=== PATIENT | female | born 1945 | race Caucasian/White ===

== ENCOUNTER → 2016-07-22 | Outpatient (CLI) | payer MEDICARE ==
--- NOTE | 2016-07-22 22:08 | WWHP ---
DATE OF SERVICE: 07/21/2016 CHIEF COMPLAINT: Patient is here for her routine gynecologic exam and mammogram. HPI: This is a 71-year-old G3, P3 with an LMP of 1975. She is status post ASHLEE for benign abnormal bleeding. The patient has been followed for a left adnexal cyst in 2007. The last ultrasound on 04/10/2015 showed a 4.8 cm simple left ovarian cyst. The patient was experiencing upper abdominal pain and recently had a CT scan of the abdomen and pelvis on 07/09/2016. This was done at [facility]. The CT scan showed cholelithiasis and she says she is scheduled to have her gallbladder removed on 08/04/16. She denies any pelvic pain or discomfort. PAST MEDICAL HISTORY: Type 2 diabetes, chronic hypertension, elevated cholesterol. MEDICATIONS: 1. Citalopram 20 mg p.r.n. 2. Lisinopril 20 mg daily. 3. Metformin 500 mg b.i.d. 4. Mevacor 20 mg daily. 5. Zantac 150 mg daily. 6. Calcium supplement daily. 7. Vitamin C supplement daily. 8. Magnesium supplement daily. Allergies to SULFA, LORTAB, VISTARIL and NSAID type medications. PAST SURGICAL HISTORY: ASHLEE 1975, bladder suspension in the , rectocele repair in the right knee replacement in 2007 and 2015. Bunion surgery in the past. Laparoscopic examination 2007 for left adnexal cyst but nothing was removed. Past [employer] history: Unchanged from the 2015 H&P. SOCIAL HISTORY: She denies tobacco and drug use and has 0 to 1 alcoholic drink per month. She has been since 1990 and this is her seconds marriage. She does not work outside the home. FAMILY HISTORY: Unchanged from the 2015 H&P. REVIEW OF SYSTEMS: She has lost about 13 pounds over the last year. She denies respiratory, cardiac, or GI problems. She denies maltreatment. She did fall once after her right knee replacement surgery. She had no major injuries. : She denies any significant problems with urinary leakage. PHYSICAL EXAM: Blood pressure 133/84. Height 5 feet 4 inches. Weight 147 pounds. Temperature 97.9, pulse 74. This a well-developed, well-nourished white female who is alert and oriented x3 in no acute distress. HEENT is within normal limits. NECK: Supple without mass or thyromegaly. CHEST AND LUNGS: Clear to auscultation. HEART: Regular rate and rhythm. Breasts are without mass or discharge. Axillary exam negative for adenopathy. BACK: Negative for CVA tenderness. ABDOMEN: Soft, nontender, without palpable masses. PELVIC EXAM: External genitalia reveals moderate atrophy without lesions. Vagina reveals moderate atrophy without lesions. There is no evidence of prolapse. Bimanual exam is negative for mass or tenderness. Rectovaginal exam is negative for mass or tenderness and is negative for occult blood. EXTREMITIES: Nontender. IMPRESSION: 1. A 71-year-old menopausal female, status post total abdominal hysterectomy for benign reasons. 2. Persistent left adnexal cyst, since 2007 which is asymptomatic. This measured approximately 5.4 cm with her recent CT scan. PLAN: 1. Pap smears have been discontinued. 2. Self-breast examination was discussed. 3. Mammogram will be done today. 4. CA 125 will be drawn today. We will also plan on repeating the pelvic ultrasound later this year. An order slip was given to patient for this. 5. We have discussed surgical removal of the adnexal mass. We have discussed the option of trying to have this done at the time of her cholecystectomy if we can get her ultrasound technologist sonographer to do this at that time, since she is having a laparoscopic procedure done for her gallbladder. She is declining this and would prefer to do at a later time if it needs to be done. 6. She will return in one year.
--- NOTE | 2016-07-24 08:31 | MM ---
Reason for exam: screening (asymptomatic). Last mammogram was performed 1 year and 4 months ago. History: Patient is postmenopausal. Physical Findings: A clinical breast exam by your physician is recommended on an annual basis and results should be correlated with mammographic findings. MG Screening Mammo w CAD Bilateral CC and MLO view(s) were taken. Prior study comparison: April 03, 2015, bilateral MG screening mammo w CAD. November 28, 2013, bilateral MG screening mammo w CAD. September 21, 2012, bilateral digital screening mammo w/CAD. There are scattered fibroglandular densities. No significant changes when compared with prior studies. ASSESSMENT: Negative, BI-RAD 1 RECOMMENDATION: Routine screening mammogram of both breasts in 1 year.
== END | disposition home or self-care (01) ==
LOC: WWCWWP 11:45
PROVIDERS: ATTEND Obstetrics & Gynecology
DX: Z12.31 Encounter for screening mammogram for malignant neoplasm of breast (principal)
CPT/HCPCS: 86304; G0202

== ENCOUNTER → 2017-03-12 | Outpatient (CLI) | payer MEDICARE ==
--- NOTE | 2017-03-12 12:44 | US ---
EXAMINATION TYPE: US pelvic complete DATE OF EXAM: 03/12/2017 COMPARISON: Pelvic ultrasound April 10, 2015 CLINICAL HISTORY: N83.20 PREV OVARIAN CYST LT. check growth of lt ovarian cyst that patient has had f or 10yrs TECHNIQUE: TA, no TV Date of LMP: 40years ago EXAM MEASUREMENTS: Uterus: N/A Endometrial Stripe: N/A Right Ovary: N/A Left Ovary: 5.5 x 4.4 x 6.2cm 1. Uterus: surgically absent 2. Endometrium: surgically absent 3. Right Ovary: not seen due to bowel gas and atrophy 4. Left Ovary: 6.2 cm ovarian cyst seen 5. Bilateral Adnexa: wnl 6. Posterior cul-de-sac: wnl IMPRESSION: There is stable simple appearing 6.2 cm cyst in left ovary not significantly changed in s ize or appearance from prior study. No suspicious nodularity or thickened septation is seen. This is abnormal finding for postmenopausal female worrisome for cystic neoplasm though almost certainly is b enign given appearance and stable findings.
== END | disposition home or self-care (01) ==
LOC: RADUSWWP 12:07
PROVIDERS: ATTEND Obstetrics & Gynecology
DX: N83.202 Unspecified ovarian cyst, left side (principal); Z78.0 Asymptomatic menopausal state
CPT/HCPCS: 76856

== ENCOUNTER → 2017-03-23 | Outpatient (CLI) | payer MEDICARE ==
--- NOTE | 2017-03-23 08:50 | P.PN ---
Progress Note - Text Chief complaint: the patient is here because of left breast pain which began at the end of February. HPI: is is a 71 year old with an LMP of 1977. The patient states she developed sudden left breast pain at the end of February. She states that it was at a 9 out of 10 on the pain scale. Currently it is one out of 10. She does not believe there was any trauma to the breast. She denies redness or bruising. She also denies nipple discharge. She noticed it 1st when she was camping. She does not believe she did any she was told that she did have a slight rib fracture about 6 months ago. She states she does not consume very much caffeine. Review of systems: she denies fever. The rest of the review of systems as in the HPI. Physical exam: blood pressure 146/85, height 5'4", weight 155 pounds, intention 97.3, pulse 71. As a well-developed well-nourished way female was alert and oriented times 3 in no acute distress. BREAST EXAM: breasts appear within normal limits. There is no unusual puckering or dimpling. The nipples are not inverted. There is no nipple discharge. There are no palpable breast masses, however, there is tenderness at the 8 o'clock position of the left breast approximately 3 cm from the areola. The tenderness is mild. She states this is the area of her breast pain. Axillary exam is negative for adenopathy. Additional studies: bilateral screening mammogram was done on 07/22/2016. This was negative. Impression: 1. 71-year-old female with a three-week history of left breast pain which is improving. There is mild tenderness at the 8 o'clock position of the left breast with no palpable mass. Differential diagnosis will include left breast cyst, other fibrocystic pain, musculoskeletal pain, and less likely breast malignancy. Plan: 1. The left breast was marked the area of tenderness. 2. If the breast ultrasound is not suspicious, such as a benign appearing cyst or no abnormality seen, will plan a conservative management. I recommended she limit caffeine and chocolate intake. 3. She was also instructed to call if she is having worsening of symptoms. 4. She can use [id number] ibuprofen as directed as needed. 5. She will return in July 2017 for her annual examination and PRN. Total time spent with patient 15 minutes.
--- NOTE | 2017-03-23 09:57 | USB ---
Reason for exam: clinical finding. History: Patient is postmenopausal. US Breast LT Left breast ultrasound includes all four quadrants, the retroareolar region and axilla. Finding demonstrates no cystic or solid lesion seen. Area of pain negative. These results were verbally communicated with the patient and result sheet given to the patient on 03/23/17. ASSESSMENT: Benign, BI-RAD 2 RECOMMENDATION: Return to routine screening mammogram schedule for both breasts. Manage patient on a clinical basis.
== END ==
LOC: WWCWWP 08:01
PROVIDERS: ATTEND Obstetrics & Gynecology
DX: N64.4 Mastodynia (principal)

== ENCOUNTER 2018-10-21 11:38 | Inpatient (IN) | payer MEDICARE ==
[2018-10-21] MEDS ORDERED: ASPIRIN 81 MG PO STA (12:09)
[2018-10-21] MEDS ORDERED: NITROGLYCERIN OINT 1 INCH/GM PACKET TOPICAL STA (12:09)
[2018-10-21] MEDS ORDERED: HEPARIN SODIUM,PORCINE 10,000 UNIT/ML 1 ML VIAL IV ONE (12:10)
--- NOTE | 2018-10-21 12:12 | ED ---
General Adult HPI - General Chief complaint: Extremity Problem,Nontraumatic Stated complaint: lt leg pain/swelling Time Seen by Provider: 10/21/18 11:40 Source: patient, RN notes reviewed Mode of arrival: ambulatory Limitations: no limitations - History of Present Illness Initial comments: This is a 73-year-old female presents emergency Department complaining of left leg swelling and then some chest pain on her way to the hospital. Patient states the pain was in the center of her chest hurts take a deep breath and the pain radiated to her neck. She also is a little for breath when this occurred. Patient states the worst the pain lasted about 15 minutes and it is still there a little bit but not as bad. Patient states the swelling in the legs below the knee and goes all the down to her foot. Patient states the calf is very tender to touch as well. Patient states she had clots in 30 years ago which does know why or what caused the clot then. Patient denies any recent fever chills or cough. Patient denies any recent trauma. Patient denies lightheadedness dizziness or near syncopal episode. Patient denies any abdominal pain. Patient denies being on any blood thinners. Patient does have a history of diabetes hypertension high cholesterol. - Related Data Home Medications Medication Instructions Recorded Confirmed Ascorbic Acid [Vitamin C] 500 mg PO DAILY 10/21/18 10/21/18 Calcium Carb-Vit D 500Mg-200Un 1 tab PO DAILY 10/21/18 10/21/18 [Oscal 500+D] Citalopram Hydrobromide 20 mg PO DAILY 10/21/18 10/21/18 [Citalopram HBr] Lisinopril 20 mg PO DAILY 10/21/18 10/21/18 Lovastatin [Mevacor] 20 mg PO HS 10/21/18 10/21/18 Magnesium 200 mg PO DAILY 10/21/18 10/21/18 Multivitamins, Thera [Multivitamin 1 tab PO DAILY 10/21/18 10/21/18 (formulary)] Pioglitazone HCl [Actos] 15 mg PO DAILY 10/21/18 10/21/18 Ranitidine HCl [Zantac] 300 mg PO HS 10/21/18 10/21/18 metFORMIN HCL 1,000 mg PO BID 10/21/18 10/21/18 Allergies Allergy/AdvReac Type Severity Reaction Status Date / Time acetaminophen [From Lortab] Allergy Rash/Hives Verified 10/21/18 12:02 hydrocodone [From Lortab] Allergy Rash/Hives Verified 10/21/18 12:02 hydroxyzine [From Vistaril] Allergy Rash/Hives Verified 10/21/18 12:02 NSAIDS (Non-Steroidal Allergy Rash/Hives Verified 10/21/18 12:02 Anti-Inflamma Sulfa (Sulfonamide Allergy Rash/Hives Verified 10/21/18 12:02 Antibiotics) Review of Systems ROS Statement: Those systems with pertinent positive or pertinent negative responses have been documented in the HPI. ROS Other: All systems not noted in ROS Statement are negative. Past Medical History Past Medical History: Diabetes Mellitus, Hypertension Past Surgical History: Hysterectomy, Orthopedic Surgery Additional Past Surgical History / Comment(s): Bladder Past Psychological History: No Psychological Hx Reported Smoking Status: Never smoker Past Alcohol Use History: Occasional Past Drug Use History: None Reported General Exam - General Exam Comments Initial Comments: GENERAL: Patient is well-developed and well-nourished. Patient is nontoxic and well- hydrated and is in mild distress. ENT: Neck is soft and supple. No significant lymphadenopathy is noted. Oropharynx is clear. Moist mucous membranes. Neck has full range of motion without eliciting any pain. EYES: The sclera were anicteric and conjunctiva were pink and moist. Extraocular movements were intact and pupils were equal round and reactive to light. Eyelids were unremarkable. PULMONARY: Unlabored respirations. Good breath sounds bilaterally. No audible rales rhonchi or wheezing was noted. CARDIOVASCULAR: There is a regular rate and rhythm without any murmurs gallops or rubs. ABDOMEN: Soft and nontender with normal bowel sounds. No palpable organomegaly was noted. There is no palpable pulsatile mass. SKIN: Skin is clear with no lesions or rashes and otherwise unremarkable. NEUROLOGIC: Patient is alert and oriented x3. Cranial nerves II through XII are grossly intact. Motor and sensory are also intact. Normal speech, volume and content. Symmetrical smile. MUSCULOSKELETAL: Normal extremities with adequate strength and full range of motion. Left leg below the knee is swollen and it Is very tender to palpation LYMPHATICS: No significant lymphadenopathy is noted PSYCHIATRIC: Normal psychiatric evaluation. Limitations: no limitations Course Vital Signs 10/21/18 10/21/18 10/21/18 11:44 12:19 14:10 Temperature 98.1 F Pulse Rate 79 77 71 Respiratory 20 16 18 Rate Blood Pressure 173/93 187/90 159/89 O2 Sat by Pulse 97 98 98 Oximetry 10/21/18 15:23 Temperature Pulse Rate 77 Respiratory 18 Rate Blood Pressure 142/80 O2 Sat by Pulse 96 Oximetry Medical Decision Making - Medical Decision Making EKG shows normal sinus rhythm at 67 bpm TX interval 126 QRS is 82 QT interval 446 QTC is 471. I started heparin high-dose on the patient immediately because she had a swollen leg and was having chest pain which was worse with inspiration. Also the patient a past history of DVT. Patient's d-dimer came back elevated so I ultrasounded the leg and CAT scan the patient's chest. Patient did not have a DVT the patient did not have a PE. Patient did have chest pain radiated to her neck some go to bring the patient in for unstable angina. I spoke with Dr. Owens he agreed to admit the patient admitted the patient I continued heparin and aspirin Nitropaste on the floor. I consult cardiology I wrote admitting orders. - Lab Data Result diagrams: 10/21/18 12:06 10/21/18 12:06 Lab Results 10/21/18 10/21/18 10/21/18 Range/Units 12:06 12:06 12:06 WBC 6.9 (3.8-10.6) k/uL RBC 4.16 (3.80-5.40) m/uL Hgb 12.5 (11.4-16.0) gm/dL Hct 38.4 (34.0-46.0) % MCV 92.5 (80.0-100.0) fL MCH 30.2 (25.0-35.0) pg MCHC 32.6 (31.0-37.0) g/dL RDW 13.0 (11.5-15.5) % Plt Count 331 (150-450) k/uL Neutrophils % 45 % Lymphocytes % 36 % Monocytes % 5 % Eosinophils % 9 % Basophils % 1 % Neutrophils # 3.1 (1.3-7.7) k/uL Lymphocytes # 2.5 (1.0-4.8) k/uL Monocytes # 0.4 (0-1.0) k/uL Eosinophils # 0.7 (0-0.7) k/uL Basophils # 0.1 (0-0.2) k/uL PT 9.9 (9.0-12.0) sec INR 0.9 (<1.2) APTT 23.8 (22.0-30.0) sec D-Dimer 1.46 H (<0.60) mg/L FEU Sodium 136 L (137-145) mmol/L Potassium 4.3 (3.5-5.1) mmol/L Chloride 102 (98-107) mmol/L Carbon Dioxide 30 (22-30) mmol/L Anion Gap 4 mmol/L BUN 12 (7-17) mg/dL Creatinine 0.55 (0.52-1.04) mg/dL Est GFR (CKD-EPI)AfAm >90 (>60 ml/min/1.73 sqM) Est GFR (CKD-EPI)NonAf >90 (>60 ml/min/1.73 sqM) Glucose 98 (74-99) mg/dL Calcium 9.5 (8.4-10.2) mg/dL Magnesium 1.8 (1.6-2.3) mg/dL Total Bilirubin 0.4 (0.2-1.3) mg/dL AST 21 (14-36) U/L ALT 29 (9-52) U/L Alkaline Phosphatase 87 (38-126) U/L Troponin I (0.000-0.034) ng/mL Total Protein 6.2 L (6.3-8.2) g/dL Albumin 3.9 (3.5-5.0) g/dL 10/21/18 Range/Units 12:06 WBC (3.8-10.6) k/uL RBC (3.80-5.40) m/uL Hgb (11.4-16.0) gm/dL Hct (34.0-46.0) % MCV (80.0-100.0) fL MCH (25.0-35.0) pg MCHC (31.0-37.0) g/dL RDW (11.5-15.5) % Plt Count (150-450) k/uL Neutrophils % % Lymphocytes % % Monocytes % % Eosinophils % % Basophils % % Neutrophils # (1.3-7.7) k/uL Lymphocytes # (1.0-4.8) k/uL Monocytes # (0-1.0) k/uL Eosinophils # (0-0.7) k/uL Basophils # (0-0.2) k/uL PT (9.0-12.0) sec INR (<1.2) APTT (22.0-30.0) sec D-Dimer (<0.60) mg/L FEU Sodium (137-145) mmol/L Potassium (3.5-5.1) mmol/L Chloride (98-107) mmol/L Carbon Dioxide (22-30) mmol/L Anion Gap mmol/L BUN (7-17) mg/dL Creatinine (0.52-1.04) mg/dL Est GFR (CKD-EPI)AfAm (>60 ml/min/1.73 sqM) Est GFR (CKD-EPI)NonAf (>60 ml/min/1.73 sqM) Glucose (74-99) mg/dL Calcium (8.4-10.2) mg/dL Magnesium (1.6-2.3) mg/dL Total Bilirubin (0.2-1.3) mg/dL AST (14-36) U/L ALT (9-52) U/L Alkaline Phosphatase (38-126) U/L Troponin I <0.012 (0.000-0.034) ng/mL Total Protein (6.3-8.2) g/dL Albumin (3.5-5.0) g/dL Critical Care Time Critical Care Time: Yes Total Critical Care Time: 35 Disposition Clinical Impression: Unstable angina Disposition: ADMITTED IP TO THIS HOSP Referrals: Sigifredo Hernandez MD [Primary Care Provider] - 1-2 days Time of Disposition: 16:29
[2018-10-21] MEDS ORDERED: HEPARIN SOD,PORK IN 0.45% NACL 25,000 UNIT in 0.45% NACL 1 250ML.BAG IV SCH ×2 (12:15→15:30)
[2018-10-21 12:33] LABS: Basophils # (A) 0.1 k/uL (0-0.2); Basophils % (A) 1 %; Eosinophils # (A) 0.7 k/uL (0-0.7); Eosinophils % (A) 9 %; HCT 38.4 % (34.0-46.0); HGB 12.5 gm/dL (11.4-16.0); Lymphocytes # (A) 2.5 k/uL (1.0-4.8); Lymphocytes % (A) 36 %; MCH 30.2 pg (25.0-35.0); MCHC 32.6 g/dL (31.0-37.0); MCV 92.5 fL (80.0-100.0); Mean Platelet Volume 7.1; Monocytes # (A) 0.4 k/uL (0-1.0); Monocytes % (A) 5 %; Neutrophils # (A) 3.1 k/uL (1.3-7.7); Neutrophils % (A) 45 %; Platelet Count 331 k/uL (150-450); RBC 4.16 m/uL (3.80-5.40); WBC 6.9 k/uL (3.8-10.6)
[2018-10-21 12:45] LABS: ALT 29 U/L (9-52); AST 21 U/L (14-36); Albumin 3.9 g/dL (3.5-5.0); Alkaline Phosphatase 87 U/L (38-126); Anion Gap 4 mmol/L; Blood Urea Nitrogen 12 mg/dL (7-17); Calcium 9.5 mg/dL (8.4-10.2); Carbon Dioxide 30 mmol/L (22-30); Chloride 102 mmol/L (98-107); Glucose 98 mg/dL (74-99); Magnesium 1.8 mg/dL (1.6-2.3); Potassium 4.3 mmol/L (3.5-5.1); Sodium 136 mmol/L (137-145); Total Bilirubin 0.4 mg/dL (0.2-1.3); Total Protein 6.2 g/dL (6.3-8.2)
[2018-10-21 12:54] LABS: INR 0.9 (<1.2); Partial Thromboplastin Time 23.8 sec (22.0-30.0); Prothrombin Time 9.9 sec (9.0-12.0)
--- NOTE | 2018-10-21 12:56 | XR ---
EXAMINATION TYPE: XR chest 2V DATE OF EXAM: 10/21/2018 COMPARISON: NONE HISTORY: Chest pain TECHNIQUE: Frontal and lateral views of the chest are obtained. FINDINGS: There is no focal air space opacity, pleural effusion, or pneumothorax seen. The cardiac silhouette size is within normal limits. The osseous structures are intact. Mild degenerative strickland es of the spine and bilateral acromioclavicular joints are noted. IMPRESSION: No acute cardiopulmonary process.
[2018-10-21 13:08] LABS: D-Dimer 1.46 mg/L FEU (<0.60)
--- NOTE | 2018-10-21 14:03 | CT ---
CT CHEST FOR PULMONARY EMBOLISM. EXAMINATION TYPE: CT chest angio for PE DATE OF EXAM: 10/21/2018 INDICATION: Lt leg pain, chest pain CT DLP: 244.5 mGycm, Automated exposure control for dose reduction was used. CONTRAST: Patient injected with 73 mL of Isovue 370. COMPARISON: None TECHNIQUE: CT of the chest is performed on a spiral scan at 2 mm thick sections. Study is performed with intravenous contrast timed for evaluation for pulmonary embolism. This will limit additional po rtions of the evaluation. 3-D MIP images reconstructed by the technologist are reviewed on the compu ter in the coronal and sagittal planes. FINDINGS: No persistent filling defects are evident to suggest an acute pulmonary embolism. Scattered lymphadenopathy is within the mediastinum. No mediastinal or hilar adenopathy enlarged by C T criteria is evident. The ascending aorta diameter at the level of the main pulmonary artery is 3.3 cm. The main pulmonary artery diameter at the bifurcation is 2.7 cm. Coronary artery calcification is likely present. Lung windows are clear. Limited CT section through the upper abdomen are unremarkable. IMPRESSIONS: 1. No acute pulmonary embolism.
--- NOTE | 2018-10-21 15:09 | US ---
EXAMINATION TYPE: US venous doppler duplex LE LT DATE OF EXAM: 10/21/2018 2:49 PM COMPARISON: NONE CLINICAL HISTORY: Pain. SIDE PERFORMED: Left TECHNIQUE: The lower extremity deep venous system is examined utilizing real time linear array sonog cristin with graded compression, doppler sonography and color-flow sonography. VESSELS IMAGED: External Iliac Vein (EIV) Common Femoral Vein Deep Femoral Vein Greater Saphenous Vein * Femoral Vein Popliteal Vein Small Saphenous Vein * Proximal Calf Veins (* superficial vessels) Grayscale, color doppler, spectral doppler imaging performed of the deep veins of the left lower extr emity. There is normal flow, compressibility, vascular waveforms. Left Leg: Negative for DVT Patient states that she regularly has fluid removed from left knee and is due to have that done. Ther e is a fluid collection left medial knee. IMPRESSION: 1. No sonographic evidence of deep venous arthrosis within the left lower extremity. 2. Popliteal fossa fluid collection may represent a Montes's cyst.
[2018-10-21] MEDS ORDERED: NITROGLYCERIN SL TABS 0.4 MG TAB SUBLINGUAL PRN (16:29)
[2018-10-21 17:24] LABS: Glucose,Whole Blood 136 mg/dL (75-99)
[2018-10-21 17:43] VITALS: BMI 25.7
[2018-10-21 20:42] LABS: Glucose,Whole Blood 130 mg/dL (75-99)
[2018-10-21] MEDS: INSULIN ASPART (NovoLOG) 100 UNIT/ML VIAL SQ SCH (20:43)
[2018-10-21] MEDS ORDERED: ACETAMINOPHEN TAB 500 MG TAB PO PRN (20:54)
[2018-10-21] MEDS ORDERED: FAMOTIDINE 20 MG TAB PO SCH (21:00)
[2018-10-21] MEDS ORDERED: ATORVASTATIN 10 MG TAB PO SCH (21:00)
[2018-10-21] MEDS ORDERED: traMADol 50 MG TAB PO PRN (23:35)
[2018-10-22 03:30] LABS: Cholesterol 122 mg/dL (<200); HDL Cholesterol 53 mg/dL (40-60); LDL Cholesterol,Calculated 30 mg/dL (0-99); Triglycerides 193 mg/dL (<150)
[2018-10-22 04:35] VITALS: TEMP 97.7
[2018-10-22 06:46] LABS: Glucose,Whole Blood 114 mg/dL (75-99)
[2018-10-22 08:05] VITALS: RESP 16
[2018-10-22] MEDS: INSULIN ASPART (NovoLOG) 100 UNIT/ML VIAL SQ SCH ×2 (08:23→11:55)
--- NOTE | 2018-10-22 08:52 | CONS ---
CONSULTATION CHIEF COMPLAINT: Chest pain. Mirian is a 73-year-old lady with history of [id number] diabetes and hypertension and dyslipidemia who presented to the hospital complaining of left leg pain and subsequently complained of chest pain. Her leg discomfort had come on over 24 hours. It hurts to move and to touch. She had a venous duplex study that is negative for DVT and her pulses are normal. The only unusual thing she did was to take a long walk with her . She has a pain in the knee on that side. Along the way, she had an episode of chest pain that was a precordial chest discomfort, mild intensity and associated with diaphoresis and unrelated to exertion. radiation to neck, arm or back. The patient had an EKG that revealed normal sinus rhythm and is within normal limits. Had a CT scan of the chest that was negative for pulmonary embolism. The patient has coronary calcification. 3 sets of cardiac enzymes are negative. PAST MEDICAL HISTORY: Significant for diabetes, dyslipidemia, hypertension. MEDICATIONS: Include Actos, Mevacor, lisinopril, vitamin C, metformin, citalopram. ALLERGIC: LORTAB, RESTORIL, NSAIDS AND SULFA. FAMILY HISTORY: Negative for premature coronary artery disease. SOCIAL HISTORY: Negative for current smoking, EtOH abuse, or drug abuse. REVIEW OF SYSTEMS: HEENT is significant for which is flu-like symptoms. Cardiac as described above. Respiratory negative. GI negative. Genitourinary negative. Allergy/Immunology: None. Skin negative. Musculoskeletal significant for arthritis. Psychosocial negative. Endocrine negative. Derm: Negative. Constitutional significant for febrile illness. Rest of the system review is not relevant. EXAM: Comfortable at rest. Vital signs are stable. There is no jugular venous distention. Carotid upstroke is normal. There is no bruit. Chest exam reveals good air entry bilaterally. Heart exam reveals first and second heart sounds. No gallop. No murmur. No rub. Abdomen is soft, nontender. Exam of extremities did not reveal any edema. Peripheral pulses are felt. Hemoglobin is 12.5, platelet count is 331, potassium is 4.3, creatinine is 0.5. Three sets of troponins are negative. LDL is 30. ASSESSMENT: 1. Precordial chest pain sharp atypical. 2. Left leg discomfort, etiology is unclear. 3. Hypertension. 4. Dyslipidemia. 5. Non-insulin diabetes. PLAN: Myocardial infarction is ruled out. I will stop the IV heparin. Venous duplex is negative. We can ambulate her and see how she does. We will consider an outpatient stress test on her. I will obtain a 2D echo on this admission. ERINN / KAREEN: [id number] /
[2018-10-22] MEDS ORDERED: ASPIRIN 325 MG TAB PO SCH (09:00)
[2018-10-22] MEDS ORDERED: ASCORBIC ACID 500 MG TAB PO SCH (09:00)
[2018-10-22] MEDS ORDERED: CITALOPRAM HYDROBROMIDE 20 MG TAB PO SCH (09:00)
[2018-10-22] MEDS ORDERED: MAGNESIUM OXIDE 400 MG TAB PO SCH (09:00)
[2018-10-22] MEDS ORDERED: CALCIUM CARB-VIT D 500MG-200UN 1 EACH TAB PO SCH (09:00)
[2018-10-22] MEDS ORDERED: LISINOPRIL 20 MG TAB PO SCH (09:00)
[2018-10-22] MEDS ORDERED: PIOGLITAZONE 15 MG TAB PO SCH (09:00)
--- NOTE | 2018-10-22 09:13 | XR ---
EXAMINATION TYPE: XR knee complete LT DATE OF EXAM: 10/22/2018 COMPARISON: NONE HISTORY: 73-year-old female with knee swelling TECHNIQUE: 3 views FINDINGS: Underlying joint effusion is demonstrated. Anterior soft tissue swelling. Left total knee a rthroplasty appears well seated. No periprosthetic lucency or fracture is seen. Osteopenia. Limited g rossly anatomic. IMPRESSION: Underlying knee joint effusion. Some anterior soft tissue swelling. Clinical correlation recommended. No evident hardware loosening or periprosthetic fracture is seen.
[2018-10-22 11:53] LABS: Glucose,Whole Blood 128 mg/dL (75-99)
[2018-10-22] MEDS ORDERED: MULTIVITAMINS, THERA 1 EACH TAB PO SCH (12:00)
[2018-10-22 12:23] VITALS: BP 116/69; PULSE 77
--- NOTE | 2018-10-22 12:53 | P.HPIM ---
History of Present Illness H&P Date: 10/22/18 Chief Complaint: Chest pain, lower leg pain/swelling This is a 73-year-old pleasant female who presented to the emergency department complaining of left leg swelling and pain to the left calf. While traveling to the hospital she developed midsternal chest pain radiating to left shoulder and neck. Patient states that the pain hurts to take a deep breath and she felt shortness of breath during the episode that lasted approximately 15 minutes. Patient is also complaining of swelling to the legs below the knee and especially the left leg. At this time patient is resting comfortably in bed. Patient has no longer any complaints of chest pain the pain in her left leg has decreased. There is some noticeable swelling to the left knee which is a common occurrence for the patient. Patient states that she has the knee drained approximately every 3-4 months. Patient states that yesterday she did take a walk with her prior to the increase in left leg pain. Patient does have history of blood clots apparently 30 years ago. She has not on any antico agulant medications at this time. She past medical history includes diabetes mellitus, hyperlipidemia, hypertension. Patient sees Dr. Ashtyn Santos in the outpatient setting. EKG shows normal sinus rhythm. Troponins 3 were negative. Patient will be scheduled for an echocardiogram today if the echocardiogram is within normal limits patient will be discharged home today. Review of Systems Review Of Systems: Constitutional: No fever, no chills, no night sweats. No weight change. No weakness, fatigue or lethargy. No daytime sleepiness. EENT: No headache. No blurred vision or double vision, no loss of vision. No loss of Hearing, no ringing in the ears, no dizziness. No nasal drainage or congestion. No epistaxis. No sore throat. Lungs: No shortness of breath, cough, no sputum production. No wheezing. Cardiovascular: No chest pain, reports left knee swelling. No palpitations. No paroxysmal nocturnal dyspnea. No orthopnea. No lightheadedness or dizziness. No syncopal episodes. Abdominal: no abdominal discomfort. No nausea, vomiting. no diarrhea. No constipation. No bloody or tarry stools. improved loss of appetite. Genitourinary: No dysuria, increased frequency, urgency. No urinary retention. Musculoskeletal: Reports left knee and lower left leg pain, reports left knee swelling, No myalgias. No muscle weakness, no gait dysfunction, no frequent falls. No back pain. No neck pain. Integumentary: No wounds, no lesions. No rash or pruritus. No unusual bruising. No change in hair or nails. Neurologic: No aphasia. No facial droop. No change in mentation. No head injury. No headache. No paralysis. No paresthesia. Psychiatric: No depression. No anxiety. No mood swings. Endocrine: No abnormal blood sugars. No weight change. No excessive sweating or thirst. Past Medical History Past Medical History: Diabetes Mellitus, Hyperlipidemia, Hypertension History of Any Multi-Drug Resistant Organisms: None Reported Past Surgical History: Hysterectomy, Orthopedic Surgery Additional Past Surgical History / Comment(s): Bladder Past Anesthesia/Blood Transfusion Reactions: No Reported Reaction Past Psychological History: No Psychological Hx Reported Smoking Status: Never smoker Past Alcohol Use History: Occasional Past Drug Use History: None Reported Additional History: Family history: Father at age 70 history of CAD, mother at age 69 history of CAD. Brothers 3: One brother from liver issues, one brother has a permanent pacemaker, one brother has history of hypertension. 2 daughters: One healthy, one history of diabetes, one son: History of diabetes - Past Family History Father Additional Family Medical History / Comment(s): athersclerosis Mother Additional Family Medical History / Comment(s): heart related issues Medications and Allergies Home Medications Medication Instructions Recorded Confirmed Type Ascorbic Acid [Vitamin C] 500 mg PO DAILY 10/21/18 10/21/18 History Calcium Carb-Vit D 500Mg-200Un 1 tab PO DAILY 10/21/18 10/21/18 History [Oscal 500+D] Citalopram Hydrobromide 20 mg PO DAILY 10/21/18 10/21/18 History [Citalopram HBr] Lisinopril 20 mg PO DAILY 10/21/18 10/21/18 History Lovastatin [Mevacor] 20 mg PO HS 10/21/18 10/21/18 History Magnesium 200 mg PO DAILY 10/21/18 10/21/18 History Multivitamins, Thera [Multivitamin 1 tab PO DAILY 10/21/18 10/21/18 History (formulary)] Pioglitazone HCl [Actos] 15 mg PO DAILY 10/21/18 10/21/18 History Ranitidine HCl [Zantac] 300 mg PO HS 10/21/18 10/21/18 History metFORMIN HCL 1,000 mg PO BID 10/21/18 10/21/18 History Allergies Allergy/AdvReac Type Severity Reaction Status Date / Time acetaminophen [From Lortab] Allergy Rash/Hives Verified 10/21/18 12:02 hydrocodone [From Lortab] Allergy Rash/Hives Verified 10/21/18 12:02 hydroxyzine [From Vistaril] Allergy Rash/Hives Verified 10/21/18 12:02 NSAIDS (Non-Steroidal Allergy Rash/Hives Verified 10/21/18 12:02 Anti-Inflamma Sulfa (Sulfonamide Allergy Rash/Hives Verified 10/21/18 12:02 Antibiotics) Physical Exam Vitals: Vital Signs Temp Pulse Pulse Resp BP BP Pulse Ox 10/22/18 12:00 97.7 F 77 16 116/69 96 10/22/18 11:53 79 16 10/22/18 08:00 97.7 F 79 16 155/84 95 10/22/18 04:00 97.7 F 70 18 135/71 96 10/22/18 03:47 18 10/22/18 00:00 18 10/21/18 23:30 97.6 F 70 18 126/71 96 10/21/18 20:00 18 10/21/18 19:33 97.4 F L 81 18 162/79 96 10/21/18 17:15 98 F 82 18 147/73 95 10/21/18 17:06 97.9 F 81 18 137/80 96 10/21/18 16:29 76 18 130/70 96 10/21/18 15:23 77 18 142/80 96 10/21/18 14:10 71 18 159/89 98 Intake and Output 10/21/18 10/22/18 10/22/18 22:59 06:59 14:59 Intake Total 236 Balance 236 Intake: Oral 236 Other: Voiding Method Toilet # Voids 2 1 General Appearance: Alert, cooperative, no distress, appears stated age. Neck HEENT: Supple, no lymphadenopathy, no thyroid enlargement, no carotid bruits. Lungs: Clear to auscultation without crackles or wheezes no rhonchi, no deformity. Chest Wall: Chest wall normal expansion with deep inspiration no tenderness and no deformity was found on exam, no costochondral pain or discomfort. Heart: Regular rate and rhythm, S1, S2 normal, no murmur, rub or gallop. Back: Symmetric, no curvature, ROM normal, no CVA tenderness. Abdomen: Soft, non-tender, no rebound or rigidity, no hepatosplenomegaly. Extremities: Extremities normal, atraumatic, edema to left knee, no redness or warmth to bilateral lower extremities, negative homans sign, no cyanosis. Pulses: 2+ and symmetric. Skin: Skin color, texture, tugor normal, no rashes or lesions. Neurologic: Alert oriented x3 cranial nerves II through XII intact, no motor deficit, no abnormal balance or gait Results CBC & Chem 7: 10/21/18 12:06 10/21/18 12:06 Labs: Abnormal Lab Results - Last 24 Hours (Table) 10/21/18 10/21/18 10/21/18 Range/Units 12:06 12:06 12:06 APTT (22.0-30.0) sec D-Dimer 1.46 H (<0.60) mg/L FEU Sodium 136 L (137-145) mmol/L POC Glucose (mg/dL) (75-99) mg/dL Total Protein 6.2 L (6.3-8.2) g/dL Triglycerides 193 H (<150) mg/dL 10/21/18 10/21/18 10/21/18 Range/Units 17:22 20:41 21:05 APTT 51.7 H (22.0-30.0) sec D-Dimer (<0.60) mg/L FEU Sodium (137-145) mmol/L POC Glucose (mg/dL) 136 H 130 H (75-99) mg/dL Total Protein (6.3-8.2) g/dL Triglycerides (<150) mg/dL 10/22/18 10/22/18 10/22/18 Range/Units 06:44 07:32 11:52 APTT 43.3 H (22.0-30.0) sec D-Dimer (<0.60) mg/L FEU Sodium (137-145) mmol/L POC Glucose (mg/dL) 114 H 128 H (75-99) mg/dL Total Protein (6.3-8.2) g/dL Triglycerides (<150) mg/dL Thrombosis Risk Factor Assmnt - Choose All That Apply Any of the Below Risk Factors Present?: Yes Each Factor Represents 1 point: Obesity (BMI >25), Swollen legs (current) Other Risk Factors: Yes Each Risk Factor Represents 3 Points: Age 75 years or older, History of DVT/PE Thrombosis Risk Factor Assessment Total Risk Factor Score: 8 Thrombosis Risk Factor Assessment Level: High Risk Assessment and Plan Plan: 1. Atypical chest pain: Cardiology consult appreciated-cardiac of knowledge he to see patient will schedule a outpatient stress test in 3 weeks, 2-D echo ordered, troponins negative 3, heparin drip per protocol. Continue aspirin Aspirin, Lipitor. If 2-D echo is within normal limits patient will be discharged home today. 2. left leg pain secondary to effusion rule out cellulitis: Venous duplex study was negative for DVT. Left knee x-ray showed underlying knee joint effusion, anterior soft tissue swelling. No evidence of hardware loosening or prosthesis fracture is seen. Tramadol 50 mg by mouth 3 times a day as needed 3. Diabetes mellitus: Continue Actos 50 mg by mouth daily 4. Hypertension: Continue lisinopril 20 mg daily 5. GERD: Pepcid 40 mg by mouth at bedtime 6. Depression: Celexa 20 mg daily 7. Hyperlipidemia: Atorvastatin 10 mg by mouth at bedtime 8. DVT prophylaxis: Heparin drip 9. GI prophylaxis: As noted above Discharge plan: Home with self-care Impression and plan of care have been directed as dictated by the signing physician. Haley Sheehan nurse practitioner acting as scribe for signing physician.
--- NOTE | 2018-10-22 12:56 | P.DS ---
Providers Date of admission: 10/21/18 16:33 Attending physician: Alissa Owens Consults: 10/21/18 16:31 Consult Physician Urgent Consulting Provider: [facility] Consult Reason/Comments: Unstable angina Do you want consulting provider notified?: Yes Primary care physician: Sigifredo Hernandez [facility] Course: This is a 73-year-old pleasant female who presented to the emergency department complaining of left leg swelling and pain to the left calf. While traveling to the hospital she developed midsternal chest pain radiating to left shoulder and neck. Patient states that the pain hurts to take a deep breath and she felt shortness of breath during the episode that lasted approximately 15 minutes. Patient is also complaining of swelling to the legs below the knee and especially the left leg. At this time patient is resting comfortably in bed. Patient has no longer any complaints of chest pain the pain in her left leg has decreased. There is some noticeable swelling to the left knee which is a common occurrence for the patient. Patient states that she has the knee drained approximately every 3-4 months. Patient states that yesterday she did take a walk with her prior to the increase in left leg pain. Patient does have history of blood clots apparently 30 years ago. She has not on any anticoagulant medications at this time. She past medical history includes diabetes mellitus, hyperlipidemia, hypertension. Patient sees Dr. Ashtyn Santos in the outpatient setting. EKG shows normal sinus rhythm. Troponins 3 were negative. Patient will be scheduled for an echocardiogram today if the echocardiogram is within normal limits patient will be discharged home today. Bilateral venous duplexes ordered and was negative for DVT. left knee x-ray shows knee joint effusion, anterior soft tissue swelling. No evidence of hardware loosening or prosthesis fracture seen. Plan: 1. Atypical chest pain: 2. left leg pain secondary to effusion rule out cellulitis: 3. Diabetes mellitus: 4. Hypertension: 5. GERD: 6. Depression: 7. Hyperlipidemia: Disposition: Home with self-care Impression and plan of care have been directed as dictated by the signing physician. Haley Sheehan nurse practitioner acting as scribe for signing physician. Plan - Discharge Summary New Discharge Prescriptions: Continue Multivitamins, Thera [Multivitamin (formulary)] 1 tab PO DAILY Magnesium 200 mg PO DAILY Calcium Carb-Vit D 500Mg-200Un [Oscal 500+D] 1 tab PO DAILY Ascorbic Acid [Vitamin C] 500 mg PO DAILY metFORMIN HCL 1,000 mg PO BID Ranitidine HCl [Zantac] 300 mg PO HS Lovastatin [Mevacor] 20 mg PO HS Lisinopril 20 mg PO DAILY Citalopram Hydrobromide [Citalopram HBr] 20 mg PO DAILY Pioglitazone HCl [Actos] 15 mg PO DAILY Discharge Medication List Ascorbic Acid [Vitamin C] 500 mg PO DAILY 10/21/18 [History] Calcium Carb-Vit D 500Mg-200Un [Oscal 500+D] 1 tab PO DAILY 10/21/18 [History] Citalopram Hydrobromide [Citalopram HBr] 20 mg PO DAILY 10/21/18 [History] Lisinopril 20 mg PO DAILY 10/21/18 [History] Lovastatin [Mevacor] 20 mg PO HS 10/21/18 [History] Magnesium 200 mg PO DAILY 10/21/18 [History] Multivitamins, Thera [Multivitamin (formulary)] 1 tab PO DAILY 10/21/18 [History] Pioglitazone HCl [Actos] 15 mg PO DAILY 10/21/18 [History] Ranitidine HCl [Zantac] 300 mg PO HS 10/21/18 [History] metFORMIN HCL 1,000 mg PO BID 10/21/18 [History] Follow up Appointment(s)/Referral(s): Joni Cooney MD [STAFF PHYSICIAN] - 3 Weeks Sigifredo Hernandez MD [Primary Care Provider] - 1-2 days
--- NOTE | 2018-10-22 13:12 | ECHOF ---
Referral Reason:cp MEASUREMENTS -------- HEIGHT: 162.6 cm WEIGHT: 68.0 kg BP: RVIDd: 2.3 cm (< 3.3) IVSd: 1.3 cm (0.6 - 1.1) LVIDd: 2.9 cm (3.9 - 5.3) LVPWd: 1.8 cm (0.6 - 1.1) IVSs: 1.6 cm LVIDs: 2.0 cm LVPWs: 1.8 cm LAESV Index (A-L): 21.44 ml/m Ao Diam: 2.8 cm (2.0 - 3.7) AV Cusp: 1.8 cm (1.5 - 2.6) LA Diam: 3.8 cm (2.7 - 3.8) MV EXCURSION: 13.536 mm (> 18.000) MV EF SLOPE: 59 mm/s (70 - 150) EPSS: 0.4 cm MV E Keith: 0.73 m/s MV DecT: 208 ms MV A Keith: 0.94 m/s MV E/A Ratio: 0.78 RAP: 5.00 mmHg RVSP: 35.64 mmHg FINDINGS -------- Sinus rhythm. This was a technically good study. The left ventricular size is normal. There is mild concentric left ventricular hypertrophy. Overa ll left ventricular systolic function is normal with, an EF between 55 - 60 %. The right ventricle is normal in size. The left atrium is normal in size. The right atrial size is normal. Interatrial and interventricular septum intact. Aortic valve is trileaflet and is mildly thickened. The mitral valve leaflets are mildly thickened. Mild mitral regurgitation is present. [id number] tricuspid regurgitation present. There is mild pulmonary hypertension. The right ventricular systolic pressure, as measured by Doppler, is 35.64mmHg. There is no pulmonic regurgitation present. The aortic root size is normal. Normal inferior vena cava with normal inspiratory collapse consistent with estimated right atrial pre ssure of 5 mmHg. The pericardium is normal. CONCLUSIONS -------- 1. Sinus rhythm. 2. This was a technically good study. 3. The left ventricular size is normal. 4. There is mild concentric left ventricular hypertrophy. 5. Overall left ventricular systolic function is normal with, an EF between 55 - 60 %. 6. The right ventricle is normal in size. 7. The left atrium is normal in size. 8. The right atrial size is normal. 9. Interatrial and interventricular septum intact. 10. Aortic valve is trileaflet and is mildly thickened. 11. The mitral valve leaflets are mildly thickened. 12. Mild mitral regurgitation is present. 13. [id number] tricuspid regurgitation present. 14. There is mild pulmonary hypertension. 15. The right ventricular systolic pressure, as measured by Doppler, is 35.64mmHg. 16. There is no pulmonic regurgitation present. 17. The aortic root size is normal. 18. Normal inferior vena cava with normal inspiratory collapse consistent with estimated right atrial pressure of 5 mmHg. 19. The pericardium is normal. FLOWER GRADER: Sybil Mendoza RDCS
== END 2018-10-22 13:53 | disposition home or self-care (01) | DRG 313 ==
LOC: EC 11:38 → OBSVTOIN 16:33 → 1SOBS 16:33
PROVIDERS: ADMIT Internal Medicine; ATTEND Internal Medicine
DX: R07.89 Other chest pain (principal); L03.115 Cellulitis of right lower limb; E11.9 Type 2 diabetes mellitus without complications; E78.00 Pure hypercholesterolemia, unspecified; E78.5 Hyperlipidemia, unspecified; F32.9 Major depressive disorder, single episode, unspecified; I10 Essential (primary) hypertension; K21.9 Gastro-esophageal reflux disease without esophagitis; M25.461 Effusion, right knee; Z79.84 Long term (current) use of oral hypoglycemic drugs; Z79.899 Other long term (current) drug therapy; Z88.6 Allergy status to analgesic agent; Z88.5 Allergy status to narcotic agent; Z88.2 Allergy status to sulfonamides; Z86.718 Personal history of other venous thrombosis and embolism; Z90.710 Acquired absence of both cervix and uterus; Z82.49 Family history of ischemic heart disease and other diseases of the circulatory system; Z83.3 Family history of diabetes mellitus
CPT/HCPCS: 36415; 71046; 71275; 80053; 80061; 83735; 84484; 85025; 85379; 85610; 85730; 93005; 93306; 96365; 96366; 96376; 99285

== ENCOUNTER → 2018-12-13 | Outpatient (CLI) | payer MEDICARE ==
[2018-12-13 11:28] VITALS: BP 148/79; PULSE 79; RESP 16; TEMP 97.9; BMI 27.3
--- NOTE | 2018-12-13 12:20 | P.HPOB ---
History of Present Illness H&P Date: 12/13/18 Chief Complaint: The patient is here for her routine gynecologic exam and ma mmogram. This is a 73 year old with an LMP of 1975. The patient is without gynecologic complaints and denies any pelvic discomfort. She has been followed for a left adnexal cyst since 2007. The most recent testing showed a 6.2 cm simple left adnexal cyst on an ultrasound done on 03/12/2017. She is status post [facility] for benign reasons. Review of Systems She is getting about 12 pounds over the last 2 years. She denies respiratory, cardiac and G.I. problems. She denies maltreatment or problems with falling. : she denies any significant problems with urinary leakage. She has had occasional slight rectal incontinence. Past Medical History Past Medical History: Diabetes Mellitus, Hyperlipidemia, Hypertension Additional Past Medical History / Comment(s): Type II diabetes. 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 ASHLEE in 1975. She has been followed for left adnexal cyst since 2007. History of Any Multi-Drug Resistant Organisms: None Reported Past Surgical History: Hysterectomy, Orthopedic Surgery Additional Past Surgical History / Comment(s): ASHLEE 1975. Bladder suspension and rectocele repair in the . Right knee replacement surgeries. [place] surgery. Laparoscopic examination in 2007 for the left adnexal cyst but nothing was removed. Colonoscopy 2013. Past Anesthesia/Blood Transfusion Reactions: No Reported Reaction Past Psychological History: No Psychological Hx Reported Smoking Status: Never smoker Past Alcohol Use History: Occasional (0-1 per month) Past Drug Use History: None Reported Additional History: She's been since 1990 and this is her 2nd marriage. She is not sexually active. - Past Family History Father Family Medical History: Myocardial Infarction (MO) Additional Family Medical History / Comment(s): athersclerosis Mother Family Medical History: Coronary Artery Disease (CAD) Additional Family Medical History / Comment(s): heart related issues. Gr andmother had gastric cancer. Grandfather had prostate cancer. Brother(s) Family Medical History: Diabetes Mellitus Medications and Allergies Home Medications Medication Instructions Recorded Confirmed Type Ascorbic Acid [Vitamin C] 500 mg PO DAILY 10/21/18 12/13/18 History Calcium Carb-Vit D 500Mg-200Un 1 tab PO DAILY 10/21/18 12/13/18 History [Oscal 500+D] Citalopram Hydrobromide 20 mg PO DAILY 10/21/18 12/13/18 History [Citalopram HBr] Lisinopril 20 mg PO DAILY 10/21/18 12/13/18 History Lovastatin [Mevacor] 20 mg PO HS 10/21/18 12/13/18 History Magnesium 200 mg PO DAILY 10/21/18 12/13/18 History Multivitamins, Thera [Multivitamin 1 tab PO DAILY 10/21/18 12/13/18 History (formulary)] Pioglitazone HCl [Actos] 15 mg PO DAILY 10/21/18 12/13/18 History Ranitidine HCl [Zantac] 300 mg PO HS 10/21/18 12/13/18 History metFORMIN HCL 1,000 mg PO BID 10/21/18 12/13/18 History Aspirin 81 mg PO DAILY 12/13/18 12/13/18 History Allergies Allergy/AdvReac Type Severity Reaction Status Date / Time acetaminophen [From Lortab] Allergy Rash/Hives Verified 12/13/18 11:28 hydrocodone [From Lortab] Allergy Rash/Hives Verified 12/13/18 11:28 hydroxyzine [From Vistaril] Allergy Rash/Hives Verified 12/13/18 11:28 NSAIDS (Non-Steroidal Allergy Rash/Hives Verified 12/13/18 11:28 Anti-Inflamma Sulfa (Sulfonamide Allergy Rash/Hives Verified 12/13/18 11:28 Antibiotics) Exam Vital Signs Temp Pulse Resp BP Pulse Ox 12/13/18 11:19 97.9 F 79 16 148/79 96 Intake and Output 12/12/18 12/13/18 12/13/18 22:59 06:59 14:59 Other: Weight 72.121 kg Height 5'4", weight 159 pounds, BMI 27.3. This is a well-developed well-nourished white female who is alert and oriented times 3 in no acute distress. HEENT: Within normal limits. NECK: Supple without mass or thyromegaly. CHEST AND LUNGS: Clear to auscultation. HEART: Regular rate and rhythm. BREASTS: Are without mass or discharge. AXILLARY EXAM: Negative for adenopathy. BACK: Negative for CVA tenderness. ABDOMEN: Soft, nontender, without palpable masses. PELVIC EXAM: External genitalia appears normal with moderate to severe atrophy. Vagina appears normal with moderate atrophy. There is no evidence of prolapse. Bimanual examination is negative for mass or tenderness. RECTAL EXAM: Rectovaginal exam is negative for mass or tenderness and is negative for occult blood. EXTREMITIES: Nontender. IMPRESSION: 1. 73-year-old menopausal female status post ASHLEE for benign reasons with normal gynecologic exam. 2. History of persistent left adnexal cyst since 2007 which is asymptomatic and not palpable on examination today. This has been followed conservatively. PLAN: 1. Pap smears have been discontinued. 2. Self breast awareness was discussed with the patient. 3. Screening Mammogram will be done today. 4. Pelvic ultrasound will be scheduled. 5. CA 125 will be drawn. 6. Osteoporosis prevention was discussed. I have stressed the importance of adequate calcium, vitamin D and regular exercise. Recommended amounts of calcium and vitamin D were also discussed. It has been many years since her last bone density test and she is not aware of what showed. Her last one was done in [place]. Bone density testing will be done today. 7. I have recommended that she ever blood pressure checked on a regular basis and she states she will do this at home. She will follow-up with Dr. Kenneth Hernandez for blood pressure elevations. 8. She does get flu shots in the fall. 9. We have discussed rectal [place] exercises which I have recommended because of slight stool incontinence. 10.She was advised to return in one year for her annual well woman exam.
--- NOTE | 2018-12-13 13:56 | BD ---
EXAMINATION TYPE: Axial Bone Density DATE OF EXAM: 12/13/2018 COMPARISON: NONE CLINICAL HISTORY: Postmenopausal female. Osteoporosis screening. Height: 64 Weight: 158.0 FRAX RISK QUESTIONS: Alcohol (3 or more units per day): no Family History (Parent hip fracture): no Glucocorticoids (More than 3mos): no (Ex: prednisone, prednisolone, methylprednisolone, dexamethasone, and hydrocortisone). History of Fracture in Adulthood: no Secondary Osteoporosis: 1. Type 1 Diabetes: no 2. Hyperthyroidism: no 3. Menopause before 45: no 4. Malnutrition: no 5. Chronic liver disease: no Rheumatoid Arthritis: no Current Tobacco Use: no RISK FACTORS HISTORY OF: Family History of Osteoporosis: no Active: yes Diet low in dairy products/other sources of calcium: yes Postmenopausal woman: age 48 Lost more than 2 inches in height since high school: no MEDICATIONS : lisinopril, mevacor, metformin, citalopram, vitamins Additional History: EXAM MEASUREMENTS: Bone mineral densitometry was performed using the [employer] System. Bone mineral density as measured about the Lumbar spine is: ----- L1-L4(G/cm2): 1.147 T Score Values are as follows: ----- L2: -0.6 ----- L3: -0.1 ----- L4: 0.0 ----- L1-L4: -0.3 Bone mineral density baseline: Bone mineral density about the R hip (g/cm2): 0.752 Bone mineral density about the L hip (g/cm2): 0.742 T Score values are as follows: -----R Neck: -2.1 -----L Neck: -2.1 -----R Total: -1.6 -----L Total: -1.6 Bone mineral density : baseline IMPRESSION: Osteopenia (T Score between -2.5 and -1). There is slightly increased risk of fracture and the patient may be considered for treatment. Re-Screen 2-5 years. NOTE: T-SCORE=SD OF THE YOUNG ADULT MEAN.
--- NOTE | 2018-12-14 14:01 | MM ---
Reason for exam: screening (asymptomatic). Last mammogram was performed 2 years and 5 months ago. History: Patient is postmenopausal. Physical Findings: A clinical breast exam by your physician is recommended on an annual basis and results should be correlated with mammographic findings. MG 3D Screening Mammo W/Cad Bilateral CC and MLO view(s) were taken. Prior study comparison: July 22, 2016, bilateral MG screening mammo w CAD. April 03, 2015, bilateral MG screening mammo w CAD. The breast tissue is heterogeneously dense. This may lower the sensitivity of mammography. No suspicious abnormality. No significant new finding when compared with prior studies. ASSESSMENT: Negative, BI-RAD 1 RECOMMENDATION: Routine screening mammogram of both breasts in 1 year.
--- NOTE | 2018-12-20 18:22 | P.PN ---
Progress Note - Text Progress Note Date: 12/20/18 OUTPATIENT FOLLOW-UP NOTE TEST(S)/RESULTS: test results from 12/13/2018 include benign mammogram, normal CA125 test, and a bone density test showing osteopenia METHOD OF NOTIFICATION: the patient was notified by phone. PATIENT COMMENTS: the patient states her only other bone density test was probably 20 years ago. DIAGNOSIS: osteopenia, benign mammogram and normal CA125. DISCUSSION: the patient is scheduled for a pelvic ultrasound to recheck the postmenopausal adnexal cyst on 12/23/2018. PLAN: I have stressed the importance of adequate calcium, vitamin D, and regular exercise. We will repeat the bone density testing in 2 -3 years.
== END | disposition home or self-care (01) ==
LOC: WWCWWP 11:14
PROVIDERS: ATTEND Obstetrics & Gynecology
DX: Z12.31 Encounter for screening mammogram for malignant neoplasm of breast (principal); M85.80 Other specified disorders of bone density and structure, unspecified site; Z78.0 Asymptomatic menopausal state
CPT/HCPCS: 36415; 77063; 77067; 77080; 86304

== ENCOUNTER → 2018-12-23 | Outpatient (CLI) | payer MEDICARE ==
--- NOTE | 2018-12-23 11:23 | US ---
EXAMINATION TYPE: US pelvic complete DATE OF EXAM: 12/23/2018 COMPARISON: US 2017 CLINICAL HISTORY: R19.09 PELVIC MASS,N83.0 OVARIAN CYST. Follow up growth of left ovarian cyst that wilfrido john has had for over 10 years. TECHNIQUE: Transabdominal sonographic images of the pelvis were acquired. Date of LMP: 40+ years ago EXAM MEASUREMENTS: Uterus: surgically absent Endometrial Stripe: surgically absent Right Ovary: not seen Left Ovary: 7.2 x 6.8 x 5.5 cm 1. Uterus: surgically absent 2. Endometrium: surgically absent 3. Right Ovary: not seen due to atrophy and overlying bowel gas 4. Left Ovary: 6.9 x 6.0 x 3.8 cm anechoic cyst. Although there is no internal complexity this has i ncreased in size in comparison to the prior exam of 04/10/2015 where this measured 4.9 x 4.8 x 3.8 cm. 5. Bilateral Adnexa: wnl 6. Posterior cul-de-sac: wnl IMPRESSION: Interval enlargement of the left ovarian cystic lesion now measuring up to 6.9 cm and pre viously measured up to 4.9 cm on the exam of 04/10/2015. In a patient of this age group further workup is recommended to exclude mucinous or serous cystadenocarcinoma although this could also relate to a mucinous or serous cystadenoma (benign). MRI of the pelvis with contrast or surgical gynecologic con sultation would be recommended.
== END | disposition home or self-care (01) ==
LOC: RADUSWWP 10:45
PROVIDERS: ATTEND Obstetrics & Gynecology
DX: N83.02 Follicular cyst of left ovary (principal)
CPT/HCPCS: 76856

== ENCOUNTER → 2019-01-03 | Outpatient (CLI) | payer MEDICARE ==
[2019-01-03 08:56] VITALS: BP 145/79; PULSE 79; RESP 18; TEMP 98; BMI 27.4
--- NOTE | 2019-01-03 09:58 | P.PN ---
Progress Note - Text Progress Note Date: 01/03/19 Chief Complaint: vulvar bleeding under the skin noticed 4 days ago. HPI: this is a 73 year old G3 PIII with an element in 1975 was status post ASHLEE for benign reasons. The patient was seen for her annual exam on 12/13/2018 and did have a pelvic exam. On 12/30/2018 she noticed slight vulvar irritation and noticed what appeared to be some bleeding under the skin along the left labia. She did have an ultrasound one week ago, but did not have a transvaginal ultrasound. She states she is on daily aspirin and does bruise easily. She does recall that on her recent pelvic examination that I had to change to a smaller speculum because of the small vaginal opening. She has also been followed for a simple left adnexal cyst. Recent pelvic ultrasound done on 12/23/2018 shows and increase in size with the left ovarian simple cyst measuring 6.9 cm. She denies any pelvic or abdominal discomfort or changes. ROS: unchanged from 12/13/2018 H and P. PE: Blood pressure: 145/79, Height: 5'4", Weight: 160 pounds, Temperature: 98.0, Pulse: 79. Pulse oximeter 96%. This is a well developed, well nourished, white female who is alert and orientedx3, in no acute distress. External genitalia: there is moderate to severe atrophy. There is a scabbed linear abrasion measuring approximately 1.5 cm that is ecchymotic just lateral to the left labia minora.. This does not look infected and there is no erythema. This is nontender to the touch and there is no active bleeding. The ecchymotic area runs along the abrasion with a width of 4 mm. There is no palpable mass. Impression: 1. 73-year-old menopausal female status post hysterectomy for benign reasons. 2. Left labial abrasion probably secondary to the pelvic exam done on 12/13/2018. This was probably not noticed until this past week. There is ecchymosis comparable to the bruising she is noticed on her arm since she has been on aspirin. 3. Postmenopausal left ovarian cyst shows increased in size and is now measuring approximately 6.9 cm and is simple Plan: 1. The patient has been reassured regarding the left vulvar abrasion and slight bleeding beneath the surface. This was probably related to the slight trauma of her pelvic exam done earlier in the month of December. She was instructed to use Neosporin twice a day on this area. 2. She was instructed to return in approximately 3 or 4 weeks for recheck. She was instructed to call she is noticing an increase in the size or worsening of the symptoms. 3. We discussed the options regarding the left adnexal postmenopausal cyst which is asymptomatic. We have discussed possible surgical referral, possible surgical removal, MRI or continuing to follow with ultrasounds. She understands that this most likely is a benign cyst based on its ultrasound appearance. Because it has increased in size and because the radiologist to read the ultrasound suggested surgical referral or MRI, she would like to proceed with MRI at this time. If solid components or more suspicious findings are noted on the MRI, we will consider surgical referral. MRI with contrast will be ordered. Time spent with the patient: 25 minutes
== END | disposition home or self-care (01) ==
LOC: WWCWWP 08:29
PROVIDERS: ATTEND Obstetrics & Gynecology
DX: Z53.9 Procedure and treatment not carried out, unspecified reason (principal)

== ENCOUNTER → 2019-01-17 | Outpatient (CLI) | payer MEDICARE ==
--- NOTE | 2019-01-18 14:21 | MR ---
EXAMINATION TYPE: MR pelvis wo/w con DATE OF EXAM: 01/17/2019 COMPARISON: Pelvic ultrasound December 23, 2018 and older ultrasound studies. HISTORY: Ovarian cyst, left CONTRAST: Standard multiplanar, multisequence MRI departmental protocol utilizing 7 mL intravenous Gadavist julien olinium contrast. FINDINGS: Uterus remains surgically absent with sigmoid colon filling the posterior bladder space. Di verticula are seen in the sigmoid colon. No suspicious bowel dilatation. No concerning pelvic fluid c ollection. Corresponding to ultrasound there is oval well-defined left adnexal lesion of T1 hypointensity and T2 hyperintensity with small curvilinear soft tissue rim along the posterior and central deep margin me asuring 5.7 cm craniocaudal dimension fashion was elected by 6.4 cm AP diameter by 4.0 cm transversel y axial image 20 without suspicious enhancement or nodularity. No suspicious pelvic adenopathy. Visualized osseous structures are intact. Bladder is also within nor mal limits. IMPRESSION: There is 6.4 cm well-defined left adnexal presumed ovarian lesion which is abnormal findi ng in postmenopausal female, certainly is suspicious for neoplasm given size but almost undoubtedly i s benign in etiology given minimal change in size or increased since 2015 ultrasound. Findings should be correlated with tumor markers. Annual surveillance be considered based on clinical correlation.
== END | disposition home or self-care (01) ==
LOC: RADMRIMAIN 15:07
PROVIDERS: ATTEND Obstetrics & Gynecology
DX: N83.202 Unspecified ovarian cyst, left side (principal); Z78.0 Asymptomatic menopausal state
CPT/HCPCS: 72197; A9585

== ENCOUNTER 2019-10-19 11:15 | Emergency (ER) | payer MEDICARE ==
[2019-10-19 11:23] VITALS: RESP 18; TEMP 98.1
--- NOTE | 2019-10-19 11:58 | ED ---
Fall HPI - General Source: patient, family, RN notes reviewed Mode of arrival: wheelchair Limitations: no limitations <Nasir Golden - Last Filed: 10/19/19 12:28> <Octavio Oliver - Last Filed: 10/19/19 12:41> - General Chief Complaint: Fall Stated Complaint: Fell,hit back of head Time Seen by Provider: 10/19/19 11:30 - History of Present Illness Initial Comments: 74-year-old female presents emergency Department with chief complaint of a fall. Patient states that she was walking her dog states her dog ran off states he got up to her dog and it was started and states that she went to turn around states that she tripped which was a mechanical fall at this time striking her head on the concrete. She states she felt dazed she states that she may have lost consciousness though in the room states that he does not believe so she was just dazed. States that her headache is improving. Patient states that he felt very shaky, diffuse weakness states that her hands were tingly states the symptoms are all improving. Patient denies any current chest pain or shortness of breath. She complains of low back pain, mild neck discomfort and posterior head pain. She denies blurred vision denies weakness no nausea vomiting. (Nasir Golden) - Related Data Home Medications Medication Instructions Recorded Confirmed Ascorbic Acid [Vitamin C] 500 mg PO DAILY 10/21/18 01/03/19 Calcium Carb-Vit D 500Mg-200Un 1 tab PO DAILY 10/21/18 01/03/19 [Oscal 500+D] Citalopram Hydrobromide 20 mg PO DAILY 10/21/18 01/03/19 [Citalopram HBr] Lisinopril 20 mg PO DAILY 10/21/18 01/03/19 Lovastatin [Mevacor] 20 mg PO HS 10/21/18 01/03/19 Magnesium 200 mg PO DAILY 10/21/18 01/03/19 Multivitamins, Thera [Multivitamin 1 tab PO DAILY 10/21/18 01/03/19 (formulary)] Pioglitazone HCl [Actos] 15 mg PO DAILY 10/21/18 01/03/19 Ranitidine HCl [Zantac] 300 mg PO HS 10/21/18 01/03/19 metFORMIN HCL 1,000 mg PO BID 10/21/18 01/03/19 Aspirin 81 mg PO DAILY 12/13/18 01/03/19 Allergies Allergy/AdvReac Type Severity Reaction Status Date / Time acetaminophen [From Lortab] Allergy Rash/Hives Verified 01/03/19 08:56 hydrocodone [From Lortab] Allergy Rash/Hives Verified 01/03/19 08:56 hydroxyzine [From Vistaril] Allergy Rash/Hives Verified 01/03/19 08:56 NSAIDS (Non-Steroidal Allergy Rash/Hives Verified 01/03/19 08:56 Anti-Inflamma Sulfa (Sulfonamide Allergy Rash/Hives Verified 01/03/19 08:56 Antibiotics) Review of Systems ROS Other: All systems not noted in ROS Statement are negative. <Nasir Golden - Last Filed: 10/19/19 12:28> ROS Other: All systems not noted in ROS Statement are negative. <Octavio Oliver - Last Filed: 10/19/19 12:41> ROS Statement: Those systems with pertinent positive or pertinent negative responses have been documented in the HPI. Past Medical History Past Medical History: Diabetes Mellitus, Hyperlipidemia, Hypertension Additional Past Medical History / Comment(s): Type II diabetes. PAST [employer] HISTORY: She has a history of genital HSV with rear outbreaks. ASHLEE in 1975. She has been followed for left adnexal cyst since 2007. History of Any Multi-Drug Resistant Organisms: None Reported Past Surgical History: Hysterectomy, Orthopedic Surgery Additional Past Surgical History / Comment(s): ASHLEE 1975. Bladder suspension and rectocele repair in the . Right knee replacement surgeries. Bunyan surgery. Laparoscopic examination in 2007 for the left adnexal cyst but nothing was removed. Colonoscopy 2013. Past Anesthesia/Blood Transfusion Reactions: No Reported Reaction Past Psychological History: No Psychological Hx Reported Smoking Status: Never smoker Past Alcohol Use History: Occasional Past Drug Use History: None Reported - Past Family History Father Family Medical History: Myocardial Infarction ([place]) Additional Family Medical History / Comment(s): athersclerosis Mother Family Medical History: Coronary Artery Disease (CAD) Additional Family Medical History / Comment(s): heart related issues. Grandmother had gastric cancer. Grandfather had prostate cancer. Brother(s) Family Medical History: Diabetes Mellitus <Nasir Golden - Last Filed: 10/19/19 12:28> General Exam Limitations: no limitations General appearance: alert, in no apparent distress Head exam: Present: atraumatic, normocephalic. Absent: normal inspection (Minimal swelling occipital region) Eye exam: Present: normal appearance, PERRL, EOMI. Absent: scleral icterus, conjunctival injection, periorbital swelling ENT exam: Present: normal exam, normal oropharynx, mucous membranes moist, TM's normal bilaterally, normal external ear exam Neck exam: Present: normal inspection, full ROM. Absent: tenderness (No si gnificant localized tenderness), meningismus, lymphadenopathy Respiratory exam: Present: normal lung sounds bilaterally, chest wall tenderness (Mild right upper rib tenderness). Absent: respiratory distress, wheezes, rales, rhonchi, stridor Cardiovascular Exam: Present: regular rate, normal rhythm, normal heart sounds. Absent: systolic murmur, diastolic murmur, rubs, gallop, clicks GI/Abdominal exam: Present: soft, normal bowel sounds. Absent: distended, tenderness, guarding, rebound, rigid Back exam: Present: normal inspection, full ROM, tenderness (There is mild diffuse lumbar tenderness greatest on the left low back now over the vertebral spine), paraspinal tenderness. Absent: vertebral tenderness (No thoracic tenderness) Neurological exam: Present: alert, oriented X3, CN II-XII intact, normal gait, reflexes normal. Absent: motor sensory deficit Skin exam: Present: warm, dry, intact, normal color. Absent: rash <Nasir Golden - Last Filed: 10/19/19 12:28> Course <Octavio Oliver - Last Filed: 10/19/19 12:41> Vital Signs 10/19/19 10/19/19 10/19/19 11:18 11:22 12:22 Temperature 98.1 F Pulse Rate 79 Respiratory 18 18 18 Rate Blood Pressure 159/80 O2 Sat by Pulse 96 Oximetry - Reevaluation(s) Reevaluation #1: 10/19/19 12:41 PA supervision: I proceeded [id number] evaluation the patient she did fall after tripping at home CT scans negative for any acute findings she is awake alert oriented 3 and she is a [place] Coma Scale of 15. I did discuss [employer] her and her she will be discharged. (Octavio Oliver) Medical Decision Making <Nasir Golden - Last Filed: 10/19/19 12:28> - Medical Decision Making X-ray of the lumbar spine shows moderate to severe degenerative changes L3 to S1 no acute fracture or malalignment x-ray of the chest no acute fracture no pneumothorax there is a mild patchy posterior basilar opacity clinically correlate to exclude early infiltrate CT of the brain and C-spine showed mild posterior scalp contusion no underlying fracture or acute intracranial abnormality C-spine no acute fracture of cervical spine moderate multilevel spondylitic changes 74-year-old female present for a fall. Patient's neurologically intact with no deficits no focal weakness. Patient has no red flag symptoms at this time. Patient imaging was reviewed by radiologist there are no acute findings there are chronic changes noted. Patient updated on results we discharged in stable condition. (Nasir Golden) Disposition Is patient prescribed a controlled substance at d/c from ED?: No Time of Disposition: 12:32 <Nasir Golden - Last Filed: 10/19/19 12:28> <Octavio Oliver - Last Filed: 10/19/19 12:41> Clinical Impression: Fall, Head injury, Back pain Disposition: HOME SELF-CARE Condition: Stable Additional Instructions: Please return to the Emergency Department if symptoms worsen or any other concerns. Referrals: Sigifredo Hernandez MD [Primary Care Provider] - 1-2 days
--- NOTE | 2019-10-19 12:16 | CT ---
EXAMINATION TYPE: CT brain omar sorensen con DATE OF EXAM: 10/19/2019 COMPARISON: Correlation MRI brain 06/17/2011 HISTORY: 74-year-old female with pain after Fall, struck back of head on cement CT DLP: 1289.1 mGycm Automated exposure control for dose reduction was used. Technique: Examination of the head was done in axial plane without intravenous contrast. Coronal and sagittal reconstructions performed. CT of the cervical spine was obtained in axial plane without intravenous injection of contrast mater ial. Coronal and sagittal reformatted images were obtained from the axial views for evaluation of f ractures, spinal alignment and canal. FINDINGS: Head: There is no evidence of acute intracranial hemorrhage, acute ischemic changes, mass, mass-effect, or extra-axial fluid collection. There is no effacement of cerebral sulci or basal subarachnoid cister ns. There is no hydrocephalus. There is no midline shift. Reynoso-white matter distinction is preserv ed. Mild posterior scalp contusion. No underlying calvarial fracture. Paranasal sinuses and mastoid air c ells well pneumatized. Orbits and globes are intact. Cervical spine: No craniocervical junction and midbody, predental space widening, or prevertebral soft tissue swellin g. Mild degenerative change at the C1 dens articulation. Moderate degenerative mid and lower cervical spine. Scattered facet and uncovertebral joint arthropathy, greater on the left within the lower cervical sp ine. Grade 1 anterolisthesis C7-T1, T1-T2, T2-T3, T3-T4 on a degenerative basis. Discussed with complex particularly at C5-C6 and C6-C7 minimally to mildly narrows the spinal canal. No acute fracture of the cervical spine. At C3-C4, moderate to severe right neuroforaminal stenosis. At C4-C5, moderate right and mild left neural foraminal stenosis. At C5-C6, moderate to severe bilateral neuroforaminal stenosis, left greater right. At C6-C7, mild to moderate bilateral neuroforaminal stenosis. Bovine configuration to the aortic arch. Ectatic upper descending thoracic aorta 3.1 cm. Sagittal and coronal reformatted images confirm above findings. COMBINED IMPRESSION: 1. Mild posterior scalp contusion. No underlying calvarial fracture or acute intracranial abnormality seen. 2. No acute fracture of the cervical spine. Moderate multilevel spondylotic change. Degenerative grad e 1 anterolisthesis from C7 to T4 levels.
--- NOTE | 2019-10-19 12:17 | XR ---
EXAMINATION TYPE: XR chest 2V DATE OF EXAM: 10/19/2019 COMPARISON: 10/21/2018 HISTORY: 74-year-old female with fall and pain TECHNIQUE: AP and lateral views FINDINGS: The heart is upper limits of normal in size. Mild elongation thoracic aorta. Some strandy atelectasis of the lower lungs. Some mild posterior basilar patchy opacity in the lateral view, likely additiona l atelectasis. IMPRESSION: Mild patchy posterior basilar opacity on the lateral view probably atelectasis. Clinically correlate to exclude an early developing infiltrate.
--- NOTE | 2019-10-19 12:19 | XR ---
EXAMINATION TYPE: XR lumbosacral spine min 4V DATE OF EXAM: 10/19/2019 COMPARISON: NONE HISTORY: 74-year-old female with pain after fall TECHNIQUE: 5 views FINDINGS: Cholecystectomy clips. 5 lumbar type vertebral bodies. Advanced hypertrophic facet arthropathy mid to lower lumbar spine. Alignment is maintained and vertebral body heights are preserved. Moderate to se nella degenerative disc disease L3-S1 levels. IMPRESSION: 1. Moderate to severe degenerative disc disease from L3 through S1 levels. 2. Advanced hypertrophic facet arthropathy mid to lower lumbar spine. 3. No vertebral compression collapse or malalignment.
[2019-10-19 12:45] VITALS: BP 149/85; PULSE 71
== END 2019-10-19 12:51 | disposition home or self-care (01) ==
LOC: EC 11:15
DX: S00.03XA Contusion of scalp, initial encounter (principal); M47.817 Spondylosis without myelopathy or radiculopathy, lumbosacral region; R91.8 Other nonspecific abnormal finding of lung field; E11.9 Type 2 diabetes mellitus without complications; E78.5 Hyperlipidemia, unspecified; I10 Essential (primary) hypertension; Z79.82 Long term (current) use of aspirin; Z79.84 Long term (current) use of oral hypoglycemic drugs; Z79.899 Other long term (current) drug therapy; Z88.5 Allergy status to narcotic agent; Z88.6 Allergy status to analgesic agent; Z88.2 Allergy status to sulfonamides; Z88.8 Allergy status to other drugs, medicaments and biological substances; Z96.651 Presence of right artificial knee joint; W01.0XXA Fall on same level from slipping, tripping and stumbling without subsequent striking against object, initial encounter; Y93.K1 Activity, walking an animal; Y92.009 Unspecified place in unspecified non-institutional (private) residence as the place of occurrence of the external cause
CPT/HCPCS: 70450; 71046; 72110; 72125; 99284

== ENCOUNTER → 2020-01-24 | Outpatient (CLI) | payer MEDICARE ==
--- NOTE | 2020-01-24 12:01 | XR ---
EXAMINATION TYPE: XR foot complete RT DATE OF EXAM: 01/24/2020 COMPARISON: NONE HISTORY: Pain TECHNIQUE: Three views are submitted. FINDINGS: Severe arthropathy first MTP joint with diffuse osteopenia. Arthropathy all DIP and MTP joints. Sever e arthropathy tarsometatarsal junction. Postsurgical change noted. IMPRESSION: 1. No acute fracture or dislocation. If symptoms persist, follow-up exam in 7 to 10 days could be ob tained. 2. Severe arthropathy with the predilection for the tarsal metatarsal joint which can be seen with os teoarthritis or gout correlate clinically.
== END | disposition home or self-care (01) ==
LOC: RADXRMAIN 11:45
PROVIDERS: ATTEND Podiatrist Foot & Ankle Surgery
DX: S92.411A Displaced fracture of proximal phalanx of right great toe, initial encounter for closed fracture (principal); M12.871 Other specific arthropathies, not elsewhere classified, right ankle and foot

== ENCOUNTER → 2020-02-13 | Outpatient (CLI) | payer MEDICARE ==
[2020-02-13 10:40] VITALS: BP 119/81; PULSE 75; RESP 18; TEMP 98.5
--- NOTE | 2020-02-13 11:40 | P.HPOB ---
History of Present Illness H&P Date: 02/13/20 Chief Complaint: The patient is here for her routine gynecologic exam and ma mmogram. This is a 74-year-old with an LMP of 1975. The patient is without gynecologic complaints. She is status post [facility] for benign reasons. She has been followed for a left adnexal cyst since 2007. The most recent pelvic ultrasound showed a left cyst measuring 6.9 cm. MRI was done last year which measured it at 6.4 cm and there was no adenopathy. Review of Systems She has lost 11 pounds over the past year. She denies respiratory, cardiac and G.I. problems. She denies maltreatment. She did fall once this year without any significant injury. : she denies any significant problems with urinary leakage. Past Medical History Past Medical History: Diabetes Mellitus, Hyperlipidemia, Hypertension Additional Past Medical History / Comment(s): Type II diabetes and history of osteopenia. 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 ASHLEE in 1975. She has been followed for left adnexal cyst since 2007. History of Any Multi-Drug Resistant Organisms: None Reported Past Surgical History: Hysterectomy, Orthopedic Surgery Additional Past Surgical History / Comment(s): ASHLEE 1975. Bladder suspension and rectocele repair in the . Right knee replacement surgeries. Bunyan surgery. Laparoscopic examination in 2007 for the left adnexal cyst but nothing was removed. Colonoscopy 2013. Past Anesthesia/Blood Transfusion Reactions: No Reported Reaction Past Psychological History: No Psychological Hx Reported Smoking Status: Never smoker Past Alcohol Use History: Occasional (One per month) Past Drug Use History: None Reported Additional History: She has been since 1990 and this is her second marriage. She is not sexually active. - Past Family History Father Family Medical History: Myocardial Infarction ([place]) Additional Family Medical History / Comment(s): athersclerosis Mother Family Medical History: Coronary Artery Disease (CAD) Additional Family Medical History / Comment(s): heart related issues. Grandmother had gastric cancer. Grandfather had prostate cancer. Brother(s) Family Medical History: Diabetes Mellitus Medications and Allergies Home Medications Medication Instructions Recorded Confirmed Type Ascorbic Acid [Vitamin C] 500 mg PO DAILY 10/21/18 02/13/20 History Calcium Carb-Vit D 500Mg-200Un 1 tab PO DAILY 10/21/18 02/13/20 History [Oscal 500+D] Citalopram Hydrobromide 20 mg PO DAILY 10/21/18 02/13/20 History [Citalopram HBr] Lovastatin [Mevacor] 20 mg PO HS 10/21/18 02/13/20 History Magnesium 200 mg PO DAILY 10/21/18 02/13/20 History Multivitamins, Thera [Multivitamin 1 tab PO DAILY 10/21/18 02/13/20 History (formulary)] Pioglitazone HCl [Actos] 15 mg PO DAILY 10/21/18 02/13/20 History lisinopriL 20 mg PO DAILY 10/21/18 02/13/20 History metFORMIN HCL 1,000 mg PO BID 10/21/18 02/13/20 History Aspirin 81 mg PO DAILY 12/13/18 02/13/20 History Cholecalciferol [Vitamin D3 (25 1,000 unit PO DAILY 02/13/20 02/13/20 History Mcg = 1000 Iu)] Tumeric 1 tab PO DAILY 02/13/20 02/13/20 History Allergies Allergy/AdvReac Type Severity Reaction Status Date / Time acetaminophen [From Lortab] Allergy Rash/Hives Verified 02/13/20 10:29 hydrocodone [From Lortab] Allergy Rash/Hives Verified 02/13/20 10:29 hydroxyzine [From Vistaril] Allergy Rash/Hives Verified 02/13/20 10:29 NSAIDS (Non-Steroidal Allergy Rash/Hives Verified 02/13/20 10:29 Anti-Inflamma Sulfa (Sulfonamide Allergy Rash/Hives Verified 02/13/20 10:29 Antibiotics) Exam Vital Signs Temp Pulse Resp BP Pulse Ox 02/13/20 10:39 98.5 F 75 18 119/81 96 Intake and Output 02/12/20 02/13/20 02/13/20 22:59 06:59 14:59 Other: Weight 67.132 kg Height 5 feet 4 inches, weight 148 pounds, BMI 25.4. This is a well-developed well-nourished white female who is alert and oriented times 3 in no acute distress. HEENT: Within normal limits. NECK: Supple without mass or thyromegaly. CHEST AND LUNGS: Clear to auscultation. HEART: Regular rate and rhythm. BREASTS: Are without mass or discharge. AXILLARY EXAM: Negative for adenopathy. BACK: Negative for CVA tenderness. ABDOMEN: Soft, nontender, without palpable masses. PELVIC EXAM: External genitalia appears normal with moderate atrophy. The vaginal opening is very small and there seems to be some adhesions of the posterior introitus related to atrophy. The medium Asif speculum is too large for the opening and a small Asif speculum had to be used. Vagina appears normal with moderate atrophy. There is no evidence of prolapse. Bimanual examination is negative for mass or tenderness. The bimanual examination had be done with my smallest finger because of the small vaginal opening. RECTAL EXAM: Rectal exam is negative for mass or tenderness and is negative for occult blood. EXTREMITIES: Nontender. IMPRESSION: 1. 74-year-old menopausal female status post ASHLEE for benign reasons with normal gynecologic exam. 2. History of a postmenopausal left adnexal cyst measuring impression a 6.2 cm in 2019. This is asymptomatic and is not palpable on examination today. 3. History of osteopenia PLAN: 1. Pap smears have been discontinued. 2. Self breast awareness was discussed with the patient. 3. sreening mammogram will be done today. 4. Osteoporosis prevention was discussed. I have stressed the importance of adequate calcium, vitamin D and regular exercise. Recommended amounts of calcium and vitamin D were also discussed. We will plan on repeating bone density testing in 1-2 years since her last one was done on 12/13/2018. 5. Pelvic ultrasound was recommended because of her postmenopausal left adnexal cyst and the order slip was given to the patient for this. Because of the small vaginal opening, this will be done transabdominally only. 6. CA 125 will be drawn today. 7. She did get a flu shot last fall and plans to get one in the next 2 months. 8. She was advised to return in one year for her annual well woman exam.
--- NOTE | 2020-02-14 11:58 | MM ---
Reason for exam: screening (asymptomatic). Last mammogram was performed 1 year and 2 months ago. History: Patient is postmenopausal. Physical Findings: A clinical breast exam by your physician is recommended on an annual basis and results should be correlated with mammographic findings. MG 3D Screening Mammo W/Cad Bilateral CC and MLO view(s) were taken. Prior study comparison: December 13, 2018, bilateral MG 3d screening mammo w/cad. July 22, 2016, bilateral MG screening mammo w CAD. The breast tissue is heterogeneously dense. This may lower the sensitivity of mammography. No significant changes when compared with prior studies. ASSESSMENT: Benign, BI-RAD 2 RECOMMENDATION: Routine screening mammogram of both breasts in 1 year.
--- NOTE | 2020-02-16 09:34 | P.PN ---
Progress Note - Text Progress Note Date: 02/16/20 OUTPATIENT FOLLOW-UP NOTE TEST(S)/RESULTS: Test results from 02/13/2020 include benign mammogram and normal CA-125 testing. METHOD OF NOTIFICATION: A message with these results was left on the patient's voicemail. PATIENT COMMENTS: DIAGNOSIS: Benign mammogram and normal CA-125 testing. Postmenopausal ovarian cyst which has been followed conservatively. DISCUSSION: The patient is scheduled for her pelvic ultrasound on 02/29/2020. PLAN: Ultrasound as above.
== END | disposition home or self-care (01) ==
LOC: WWCWWP 10:17
PROVIDERS: ATTEND Obstetrics & Gynecology
DX: Z12.31 Encounter for screening mammogram for malignant neoplasm of breast (principal); N83.202 Unspecified ovarian cyst, left side; N95.9 Unspecified menopausal and perimenopausal disorder
CPT/HCPCS: 77063; 77067; 86304

== ENCOUNTER → 2020-02-29 | Outpatient (CLI) | payer MEDICARE ==
--- NOTE | 2020-02-29 14:39 | US ---
EXAMINATION TYPE: US pelvic complete DATE OF EXAM: 02/29/2020 COMPARISON: MRI 01/17/2019; US 12/23/2017 CLINICAL HISTORY: 74-year-old female N83.0 left Ovarian Cyst. Follow up growth of left ovarian cyst t hat patient has had for 15 years. Patient had Hysterectomy. TECHNIQUE: Transabdominal sonographic images of the pelvis were acquired. Declined transvaginal scan reji. Date of LMP: 40+ years ago FINDINGS: EXAM MEASUREMENTS: Uterus: surgically absent Right Ovary: not seen Left Ovary: Cystic structure redemonstrated in the left adnexa. No normal ovarian tissue is identifie d. 1. Uterus: Surgically absent 2. Endometrium: surgically absent 3. Right Ovary: not seen due to postmenopausal atrophy and overlying bowel gas 4. Left Ovary: 6.6 x 4.3 x 4.1 anechoic cyst as seen on previous MRI and US (on ultrasound of 019, it measured 6.9 x 6.0 x 3.8 cm. On MRI of 01/17/2019, this measured 6.4 x 5.7 x 4.0 cm). 5. Bilateral Adnexa: wnl 6. Posterior cul-de-sac: wnl IMPRESSION: 1. Redemonstrated left adnexal cyst currently measured at 6.6 x 4.3 x 4.1 cm. This is not significant ly changed as compared to the 2019 exams where measurements were up to 6.9 x 6.0 x 2.8 cm. 2. Status post hysterectomy. The right ovary could not be visualized.
== END | disposition home or self-care (01) ==
LOC: RADUSWWP 12:58
PROVIDERS: ATTEND Obstetrics & Gynecology
DX: N94.89 Other specified conditions associated with female genital organs and menstrual cycle (principal); Z90.710 Acquired absence of both cervix and uterus
CPT/HCPCS: 76856

== ENCOUNTER → 2020-12-12 | Outpatient (CLI) | payer MEDICARE ==
--- NOTE | 2020-12-12 17:00 | NM ---
EXAMINATION TYPE: NM bone scan whole body DATE OF EXAM: 12/12/2020 COMPARISON: NONE HISTORY: Radiculopathy, lumbar region Delayed whole-body scanning was performed following the injection of 23.9 mCi Tc 99m MDP. Images wer e acquired 3 hours post injection. FINDINGS: There is focal radiotracer accumulation in the region of L2. Additional radiotracer accumulation is in the region of T10. Bilateral knee prostheses are noted. There is increased uptake in the region of the metatarsals in th e feet bilaterally. Some uptake in the region of the second right foot digit may be present. Degenera tive type uptake is noted within the bilateral hands and wrists the elbows to mild degree the shoulde rs. COMPARISON: Outside lumbar spine films. The the suspected compression of the inferior L2 vertebral dhiraj dy appears to correspond to the uptake on the bone scan. This is likely acute. IMPRESSION: 1. Uptake in the region of the L2 level likely reflects an acute compression of the inferior endplate . 2. Uptake in the region of T10 may be related to the pedicles. Plain film correlation would be recomm ended.
== END | disposition home or self-care (01) ==
LOC: RADNMMAIN 11:06
PROVIDERS: ATTEND Physical Medicine & Rehabilitation
DX: M54.16 Radiculopathy, lumbar region (principal)
CPT/HCPCS: 78306; A9503

== ENCOUNTER → 2021-05-20 | Outpatient (CLI) | payer MEDICARE ==
[2021-05-20 13:11] VITALS: BP 113/74; PULSE 77; RESP 18; TEMP 97.8
--- NOTE | 2021-05-20 14:01 | P.HPOB ---
History of Present Illness H&P Date: 05/20/21 Chief Complaint: The patient is here for her routine gynecologic exam and ma mmogram. This is a 75-year-old with an LMP of 1975. The patient is without gynecologic complaints. She is status post [facility] for benign reasons. She has been followed for a left adnexal cyst since 2007. Her most recent ultrasound on 02/28/2018 showed a benign appearing left adnexal cyst measuring 6.6 cm. She denies any pelvic discomfort or abdominal changes. Review of Systems The patient has lost 5 pounds over the last year. She denies respiratory, cardiac, or G.I. problems. Past Medical History Past Medical History: Diabetes Mellitus, Hyperlipidemia, Hypertension Additional Past Medical History / Comment(s): Type II diabetes and history of osteopenia. 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 ASHLEE in 1975. She has been followed for left adnexal cyst since 2007. History of Any Multi-Drug Resistant Organisms: None Reported Past Surgical History: Hysterectomy, Orthopedic Surgery Additional Past Surgical History / Comment(s): ASHLEE 1975. Bladder suspension and rectocele repair in the . Right knee replacement surgeries. Bunyan surgery. Laparoscopic examination in 2007 for the left adnexal cyst but nothing was removed. Colonoscopy 2013. Past Anesthesia/Blood Transfusion Reactions: No Reported Reaction Past Psychological History: No Psychological Hx Reported Smoking Status: Never smoker Past Alcohol Use History: Rare (1 year) Past Drug Use History: None Reported Additional History: She has been since 1990 and this is her second marriage. She is not sexually active. - Past Family History Father Family Medical History: Myocardial Infarction ([place]) Additional Family Medical History / Comment(s): athersclerosis Mother Family Medical History: Coronary Artery Disease (CAD) Additional Family Medical History / Comment(s): heart related issues. Grandmother had gastric cancer. Grandfather had prostate cancer. Brother(s) Family Medical History: Diabetes Mellitus Medications and Allergies Home Medications Medication Instructions Recorded Confirmed Type Ascorbic Acid [Vitamin C] 500 mg PO DAILY 10/21/18 05/20/21 History Calcium Carb-Vit D 500Mg-5Mcg 1 tab PO DAILY 10/21/18 05/20/21 History [Oscal 500+D 5 Mcg (200 Iu)] Citalopram Hydrobromide 20 mg PO DAILY 10/21/18 05/20/21 History [Citalopram HBr] Lovastatin [Mevacor] 20 mg PO HS 10/21/18 05/20/21 History Magnesium 200 mg PO DAILY 10/21/18 05/20/21 History Multivitamins, Thera [Multivitamin 1 tab PO DAILY 10/21/18 05/20/21 History (formulary)] Pioglitazone HCl [Actos] 15 mg PO DAILY 10/21/18 05/20/21 History lisinopriL 20 mg PO DAILY 10/21/18 05/20/21 History metFORMIN HCL [Glucophage] 1,000 mg PO BID 10/21/18 05/20/21 History Aspirin 81 mg PO DAILY 12/13/18 05/20/21 History Cholecalciferol [Vitamin D3 (25 1,000 unit PO DAILY 02/13/20 05/20/21 History Mcg = 1000 Iu)] Tumeric 1 tab PO DAILY 02/13/20 05/20/21 History Allergies Allergy/AdvReac Type Severity Reaction Status Date / Time acetaminophen [From Lortab] Allergy Rash/Hives Verified 05/20/21 13:03 hydrocodone [From Lortab] Allergy Rash/Hives Verified 05/20/21 13:03 hydroxyzine [From Vistaril] Allergy Rash/Hives Verified 05/20/21 13:03 NSAIDS (Non-Steroidal Allergy Rash/Hives Verified 05/20/21 13:03 Anti-Inflamma Sulfa (Sulfonamide Allergy Rash/Hives Verified 05/20/21 13:03 Antibiotics) Exam Vital Signs Temp Pulse Resp BP Pulse Ox 05/20/21 13:05 97.8 F 77 18 113/74 96 Intake and Output 05/19/21 05/20/21 05/20/21 22:59 06:59 14:59 Other: Weight 64.864 kg Height 5 feet 4 inches, weight 143 pounds, BMI 24.5. This is a well-developed well-nourished white female who is alert and oriented times 3 in no acute distress. HEENT: Within normal limits. NECK: Supple without mass or thyromegaly. CHEST AND LUNGS: Clear to auscultation. HEART: Regular rate and rhythm. BREASTS: Are without mass or discharge. AXILLARY EXAM: Negative for adenopathy. BACK: Negative for CVA tenderness. ABDOMEN: Soft, nontender, without palpable masses. PELVIC EXAM: External genitalia has moderate to severe atrophy without lesions. The vaginal opening is very small and allows my smallest a digit to enter the vagina. Also the smallest Graves speculum was used. There seems to be some fusion of the posterior labia in the midline secondary to the atrophy. This is unchanged from her previous exam. Vagina appears normal with moderate atrophy. There is no evidence of prolapse. Bimanual examination is negative for mass or tenderness. The bimanual examination is somewhat limited because I am only able to insert my smallest digit into the vagina for the bimanual examination. RECTAL EXAM rectal exam is negative for mass or tenderness and is negative for occult blood. EXTREMITIES: Nontender. IMPRESSION: 1. 75-year-old menopausal female who is status post ASHLEE for benign reasons with moderate to severe vulvar atrophy which is unchanged from her previous examination. 2. History of a postmenopausal left adnexal cyst measuring approximately 6.6 cm by ultrasound last year. This is asymptomatic and not palpable on examination today. 3. History of osteopenia PLAN: 1. Pap smears have been discontinued. 2. Self breast awareness was discussed with the patient. We have also discussed symptoms associated with inflammatory breast cancer. 3. Screening mammogram will be done today. 4. Pelvic ultrasound is again recommended and we will continue to do this yearly because of the persistent postmenopausal left adnexal cyst. The order slip was given to the patient for this. Because of the very small vaginal opening, this will be done transabdominally only. 5. CA-125 will be drawn today. 6.Osteoporosis prevention was discussed. I have stressed the importance of adequate calcium, vitamin D and regular exercise. Recommended amounts of calcium and vitamin D were also discussed. Repeat bone density testing is recommended and the order slip was given to the patient for this. 7. She was advised to return in one year for her annual well woman exam. She was also instructed to be seen if she is having pelvic discomfort or abdominal changes.
--- NOTE | 2021-05-22 13:42 | MM ---
Reason for exam: screening (asymptomatic). Last mammogram was performed 1 year and 3 months ago. History: Patient is postmenopausal. Physical Findings: A clinical breast exam by your physician is recommended on an annual basis and results should be correlated with mammographic findings. MG 3D Screening Mammo W/Cad Bilateral CC and MLO view(s) were taken. Prior study comparison: February 13, 2020, bilateral MG 3d screening mammo w/cad. December 13, 2018, bilateral MG 3d screening mammo w/cad. The breast tissue is heterogeneously dense. This may lower the sensitivity of mammography. No significant changes when compared with prior studies. ASSESSMENT: Benign, BI-RAD 2 RECOMMENDATION: Routine screening mammogram of both breasts in 1 year.
--- NOTE | 2021-05-27 10:16 | P.PN ---
Progress Note - Text Progress Note Date: 05/27/21 OUTPATIENT FOLLOW-UP NOTE TEST(S)/RESULTS: Test results from 05/20/2021 include benign mammogram and normal CA-125 test. METHOD OF NOTIFICATION: The patient was notified by phone. PATIENT COMMENTS: She plans to call for a pelvic ultrasound appointment today as recommended. DIAGNOSIS: Benign mammogram and normal CA-125 test. DISCUSSION: The patient has been followed for a left adnexal cyst since 2007. PLAN: Pelvic ultrasound as above.
== END ==
LOC: WWCWWP 12:53
PROVIDERS: ATTEND Obstetrics & Gynecology
DX: Z12.31 Encounter for screening mammogram for malignant neoplasm of breast (principal); N90.5 Atrophy of vulva; E11.9 Type 2 diabetes mellitus without complications; E78.5 Hyperlipidemia, unspecified; I10 Essential (primary) hypertension; Z79.84 Long term (current) use of oral hypoglycemic drugs; Z79.899 Other long term (current) drug therapy; Z87.310 Personal history of (healed) osteoporosis fracture; Z87.42 Personal history of other diseases of the female genital tract; Z88.6 Allergy status to analgesic agent; Z88.5 Allergy status to narcotic agent; Z88.8 Allergy status to other drugs, medicaments and biological substances; Z88.2 Allergy status to sulfonamides
CPT/HCPCS: 77063; 77067; 86304

== ENCOUNTER → 2021-06-06 | Outpatient (CLI) | payer MEDICARE ==
--- NOTE | 2021-06-06 16:49 | US ---
EXAMINATION TYPE: US pelvic complete DATE OF EXAM: 06/06/2021 COMPARISON: 02/29/2020 CLINICAL HISTORY: R19.09 Pelvic mass, N83.0 Ovarian cyst Left. Partial hysterectomy, still has both o varies per patient. Patient states having a left ovarian cyst x >30 years. TECHNIQUE: Transvaginal (TV) and Transabdominal (TA) . Transabdominal sonographic images of the pel vis were acquired. Patient declined transvaginal exam Date of LMP: Partial hysterectomy EXAM MEASUREMENTS: Left Ovary: 7.1 x 5.1 x 5.8 cm 1. Uterus: Surgically absent 2. Endometrium: Surgically absent 3. Right Ovary: Obscured by overlying bowel gas 4. Left Ovary: Simple cyst = 6.7 x 5.2 x 4.8 cm. Normal ovarian tissue not visualized 5. Bilateral Adnexa: Peristalsing bowel 6. Posterior cul-de-sac: no free fluid IMPRESSION: Left ovarian cyst is redemonstrated with prior measurement of 6.6 x 4.3 x 4.1 cm.
== END | disposition home or self-care (01) ==
LOC: RADUSWWP 15:49
PROVIDERS: ATTEND Obstetrics & Gynecology
DX: N83.202 Unspecified ovarian cyst, left side (principal)
CPT/HCPCS: 76856

== ENCOUNTER → 2021-07-04 | Outpatient (CLI) | payer MEDICARE ==
--- NOTE | 2021-07-04 11:43 | BD ---
EXAMINATION TYPE: Axial Bone Density DATE OF EXAM: 07/04/2021 COMPARISON: 12.12.2018 CLINICAL HISTORY: 76 YR OLD FEMALE......ICD-10 CODE: Z78.0 POST MENOPAUSAL Height: 63 Weight: 139 FRAX RISK QUESTIONS: RISK FACTORS HISTORY OF: Postmenopausal woman: YES, AT AGE 48 Lost more than 2 inches in height since high school: YES Hyperparathyroidism: NO Adrenal Insufficiency: NO MEDICATIONS: Additional Medications: BP MEDS, CITALOPRAM, STATIN FOR CHOLESTEROL, METFORMIN, ASPIRIN VIT D AND JOSIAH CIUM, ACTOS, REFLUX MEDS Additional History: OSTEOARTHRITIS, BILAT TKRs, CHOLESTEROL MEDS, DIABETIC, ANTIDEPRESSANT, HX OF BL OOD CLOTS, REFLUX EXAM MEASUREMENTS: Bone mineral densitometry was performed using the [employer] System. Bone mineral density as measured about the Lumbar spine is: ----- L1-L4(G/cm2): 1.116 T Score Values are as follows: ----- L1: -1.0 ----- L2: 0.1 ----- L3: -0.3 ----- L4: -0.9 ----- L1-L4: -0.5 Bone mineral density has: Decreased -1.9% since study of: 12.12.2018 Bone mineral density about the R hip (g/cm2): 0.759 Bone mineral density about the L hip (g/cm2): 0.765 T Score values are as follows: -----R Neck: -2.6 -----L Neck: -2.1 -----R Total: -2.0 -----L Total: -1.9 Bone mineral density has: Decreased -5.1% since study of: 12.12.2018 FRAX%s: THERE IS A 19.9% CHANCE FOR A MAJOR OSTEOPOROTIC FX AND A 7.2% FOR HIP......PROBABILITY FO R FX IN 10 YRS TIME IMPRESSION: Osteopenia NOTE: T-SCORE=SD OF THE YOUNG ADULT MEAN.
== END | disposition home or self-care (01) ==
LOC: RADBDWWP 10:29
PROVIDERS: ATTEND Obstetrics & Gynecology
DX: M81.0 Age-related osteoporosis without current pathological fracture (principal); M85.89 Other specified disorders of bone density and structure, multiple sites; Z78.0 Asymptomatic menopausal state
CPT/HCPCS: 77080

== ENCOUNTER → 2022-09-16 | Outpatient (CLI) | payer MEDICARE ==
[2022-09-16 08:48] VITALS: BP 164/89; PULSE 71; RESP 17; TEMP 97.7
--- NOTE | 2022-09-16 09:39 | P.HPOB ---
History of Present Illness H&P Date: 09/16/22 Chief Complaint: The patient is here for her routine gynecologic exam and ma mmogram. This is a 77-year-old with an LMP of 1975. She is status post [facility] for benign reasons. She has been followed for a left adnexal cyst since 2007. Her most recent ultrasound on 06/06/2021 showed a 6.7 x 5.2 x 4.8 simple cyst. CA- 125 at that time was normal. She denies any discomfort or symptoms from the cyst. About 1 week ago she noticed a red spot just inside the vaginal opening, but she states it is not as red now. Review of Systems The patient's weight has been stable over the last year. She denies respiratory, cardiac, or G.I. problems. Past Medical History Past Medical History: Diabetes Mellitus, Hyperlipidemia, Hypertension Additional Past Medical History / Comment(s): Type II diabetes and history of focal osteoporosis(Rx declined). 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 ASHLEE in 1975. She has been followed for left adnexal cyst since 2007. History of Any Multi-Drug Resistant Organisms: None Reported Past Surgical History: Hysterectomy, Orthopedic Surgery Additional Past Surgical History / Comment(s): ASHLEE 1975. Bladder suspension and rectocele repair in the . Right knee replacement surgeries. [place]yan surgery. Laparoscopic examination in 2007 for the left adnexal cyst but nothing was removed. Colonoscopy 2013. REVERSE LEFT SHOULDER REPLACEMENT JULY 2022 Past Anesthesia/Blood Transfusion Reactions: No Reported Reaction Past Psychological History: No Psychological Hx Reported Smoking Status: Never smoker Past Alcohol Use History: Rare (2-4 per year) Past Drug Use History: None Reported Additional History: She has been since 1990 and this is her second marriage. She is not sexually active. She has been caring for her who is various medical problems. She also handles issues with her brother who lives out of state. - Past Family History Father Family Medical History: Myocardial Infarction ([place]) Additional Family Medical History / Comment(s): athersclerosis Mother Family Medical History: Coronary Artery Disease (CAD) Additional Family Medical History / Comment(s): heart related issues. Grandmother had gastric cancer. Grandfather had prostate cancer. Brother(s) Family Medical History: Diabetes Mellitus Medications and Allergies Home Medications Medication Instructions Recorded Confirmed Type Ascorbic Acid [Vitamin C] 500 mg PO DAILY 10/21/18 09/16/22 History Calcium Carb-Vit D 500Mg-5Mcg 1 tab PO DAILY 10/21/18 09/16/22 History [Oscal 500+D 5 Mcg (200 Iu)] Citalopram Hydrobromide 20 mg PO DAILY 10/21/18 09/16/22 History [Citalopram HBr] Lovastatin [Mevacor] 20 mg PO HS 10/21/18 09/16/22 History Multivitamins, Thera [Multivitamin 1 tab PO DAILY 10/21/18 09/16/22 History (formulary)] Pioglitazone HCl [Actos] 15 mg PO DAILY 10/21/18 09/16/22 History lisinopriL 20 mg PO DAILY 10/21/18 09/16/22 History metFORMIN HCL [Glucophage] 1,000 mg PO BID 10/21/18 09/16/22 History Aspirin 81 mg PO DAILY 12/13/18 09/16/22 History Cholecalciferol [Vitamin D3 (25 1,000 unit PO DAILY 02/13/20 09/16/22 History Mcg = 1000 Iu)] Baclofen [Lioresal] 10 mg PO DIRECTED PRN 09/16/22 09/16/22 History Famotidine [Pepcid] 20 mg PO DAILY 09/16/22 09/16/22 History Meloxicam 7.5 mg PO DIRECTED PRN 09/16/22 09/16/22 History Zinc Gluconate [Zinc] 50 mg PO DAILY 09/16/22 09/16/22 History Allergies Allergy/AdvReac Type Severity Reaction Status Date / Time acetaminophen [From Lortab] Allergy Rash/Hives Verified 09/16/22 08:26 hydrocodone [From Lortab] Allergy Rash/Hives Verified 09/16/22 08:26 hydroxyzine [From Vistaril] Allergy Rash/Hives Verified 09/16/22 08:26 NSAIDS (Non-Steroidal Allergy Rash/Hives Verified 09/16/22 08:26 Anti-Inflamma Sulfa (Sulfonamide Allergy Rash/Hives Verified 09/16/22 08:26 Antibiotics) Exam Vital Signs Temp Pulse Resp BP Pulse Ox 09/16/22 08:42 97.7 F 71 17 164/89 98 Intake and Output 09/15/22 09/16/22 09/16/22 22:59 06:59 14:59 Other: Weight 64.41 kg Height 5 feet 4 inches, weight 142 pounds, BMI 24.4. This is a well-developed well-nourished white female who is alert and oriented times 3 in no acute distress. HEENT: Within normal limits. NECK: Supple without mass or thyromegaly. CHEST AND LUNGS: Clear to auscultation. HEART: Regular rate and rhythm. BREASTS: Are without mass or discharge. AXILLARY EXAM: Negative for adenopathy. BACK: Negative for CVA tenderness. ABDOMEN: Soft, nontender, without palpable masses. PELVIC EXAM: Reveals moderate to severe atrophy with a small opening. There is small area near the posterior introitus is minimally erythematous on the right side measuring 0.5 x 1.0 cm. This has a benign appearance and has the appearance that looks like it may have been fused with the other side and then . She has a history of labial fusion secondary to atrophy. This area is not ulcerated and his benign-appearing. Vagina appears normal with moderate atrophy. The small Vazquez speculum was used for visualization since larger speculums would not fit into the small introitus opening. There is no evidence of prolapse. Bimanual examination (using smallest digit )is negative for mass or tenderness. RECTAL EXAM: Rectal exam is negative for mass or tenderness and is negative for occult blood. EXTREMITIES: Nontender. IMPRESSION: 1. 77-year-old menopausal female status post ASHLEE for benign reasons, with severe genital atrophy and otherwise unremarkable examination. 2. History of left adnexal cyst which has been followed since 2007. Her most recent ultrasound on 06/06/2021 showed a 6.7 x 5.2 x 4.8 cm fluid-filled cyst. This is not palpable on exam and is asymptomatic. 3. Focal osteoporosis in the patient again is declining treatment with prescrip tion medication. PLAN: 1. Pap smear is have been discontinued. 2. Self breast awareness was discussed with the patient. We have also discussed symptoms associated with inflammatory breast cancer. 3. Screening mammogram will be done today. 4. Pelvic ultrasound and CA-125 tests will be done. Order slip was given to the patient for these. After these are done we will again have to weigh the r isks and benefits of options such as conservative management or surgical intervention for the pelvic cyst. 5. Osteoporosis management was discussed. I have stressed the importance of adequate calcium, vitamin D and regular exercise. Recommended amounts of calcium and vitamin D were also discussed. She is again declining perception medication for osteoporosis. We will plan repeating bone density test in 1 year and again discussed the options. 6. She was advised to return in one year for her annual well woman exam and as needed.
--- NOTE | 2022-09-17 11:45 | P.PN ---
Progress Note - Text Progress Note Date: 09/17/22 OUTPATIENT FOLLOW-UP NOTE TEST(S)/RESULTS: Test results from 09/16/2022 include benign mammogram and normal CA-125 test. METHOD OF NOTIFICATION: The patient was notified by phone. PATIENT COMMENTS: She plans to schedule her pelvic ultrasound immediately after speaking with me today. DIAGNOSIS: Benign mammogram and normal CA-125 test. Chronic postmenopausal adnexal cyst followed conservatively. DISCUSSION: PLAN: Await pelvic ultrasound which the patient will schedule for the near future.
== END ==
LOC: WWCWWP 08:18
PROVIDERS: ATTEND Obstetrics & Gynecology
DX: Z12.31 Encounter for screening mammogram for malignant neoplasm of breast (principal); N83.209 Unspecified ovarian cyst, unspecified side; N83.00 Follicular cyst of ovary, unspecified side; R19.09 Other intra-abdominal and pelvic swelling, mass and lump; Z88.5 Allergy status to narcotic agent; Z88.6 Allergy status to analgesic agent; Z88.2 Allergy status to sulfonamides; Z88.8 Allergy status to other drugs, medicaments and biological substances

== ENCOUNTER → 2022-09-16 | Outpatient (CLI) | payer MEDICARE ==
--- NOTE | 2022-09-16 10:44 | MM ---
Reason for Exam: Screening (asymptomatic). Last mammogram was performed 1 year(s) and 4 month(s) ago. Patient History: Menarche at age 12. First Full-Term at age 18. Hysterectomy at age 28. Postmenopausal. Risk Values: Allie 5 year model risk: 1.4%. NCI Lifetime model risk: 2.3%. Prior Study Comparison: 12/13/2018 Bilateral Screening Mammogram, [facility]. 02/13/2020 Bilateral Screening Mammogram, [facility]. 05/20/2021 Bilateral Screening Mammogram, [facility]. Tissue Density: The breast tissue is heterogeneously dense. This may lower the sensitivity of mammography. Analyzed By CAD. Overall Assessment: Benign, BI-RAD 2 Management: Screening Mammogram of both breasts in 1 year. Electronically signed and approved by: Sunday Mallory M.D.
== END | disposition home or self-care (01) ==
LOC: RADMAMWWP 09:26
PROVIDERS: ATTEND Obstetrics & Gynecology
DX: Z12.31 Encounter for screening mammogram for malignant neoplasm of breast (principal); Z78.0 Asymptomatic menopausal state
CPT/HCPCS: 77063; 77067; 86304

== ENCOUNTER → 2022-09-23 | Outpatient (CLI) | payer MEDICARE ==
--- NOTE | 2022-09-23 11:37 | US ---
EXAMINATION TYPE: US pelvic complete DATE OF EXAM: 09/23/2022 COMPARISON: NONE CLINICAL HISTORY: N83.0 OVARIAN CYST. follow up left ovarian cyst. Partial hysterectomy TECHNIQUE: Transabdominal (TA). Date of LMP: unknown EXAM MEASUREMENTS: Uterus: Surgically absent Endometrial Stripe: Surgically absent Right Ovary: 2.7 x 2.2 x 1.6cm Left Ovary: 7.0 x 4.3 x 5.4cm 1. Uterus: Surgically absent 2. Endometrium: Surgically absent 3. Right Ovary: cystic area = 1.9 x 1.6 x 1.4cm 4. Left Ovary: cystic area = 5.0 x 5.6 x 5.0cm 5. Bilateral Adnexa: wnl IMPRESSION: Bilateral ovarian cysts noted.
== END | disposition home or self-care (01) ==
LOC: RADUSWWP 10:58
PROVIDERS: ATTEND Obstetrics & Gynecology
DX: N83.01 Follicular cyst of right ovary (principal); N83.02 Follicular cyst of left ovary
CPT/HCPCS: 76856